=== PATIENT | male | born 1965 | race Caucasian/White ===

== ENCOUNTER → 2018-06-27 | Outpatient (CLI) | payer BC ==
--- NOTE | 2018-06-28 08:13 | US ---
EXAMINATION TYPE: US kidneys/renal and bladder DATE OF EXAM: 06/27/2018 COMPARISON: NONE CLINICAL HISTORY: E11.29Type 2 diabetes mellitus with other diabetic. kidney issues related to DMII EXAM MEASUREMENTS: Right Kidney: 9.0 x 4.6 x 5.1 cm Left Kidney: 11.7 x 6.0 x 6.6 cm morbidly obese patient Right Kidney:Smaller in size, no hydronephrosis or masses seen Left Kidney: No hydronephrosis or masses seen Bladder: wnl IMPRESSION: Asymmetry of the size of the kidneys with no evidence of obvious hydronephrosis or nephrolithiasis.
== END ==
LOC: RADUSWWP 15:35
PROVIDERS: ATTEND Family Medicine
DX: E11.29 Type 2 diabetes mellitus with other diabetic kidney complication (principal); R93.429 Abnormal radiologic findings on diagnostic imaging of unspecified kidney
CPT/HCPCS: 76770

== ENCOUNTER → 2018-11-18 | Outpatient (CLI) | payer BC ==
--- NOTE | 2018-11-21 01:58 | MR ---
MR scan of the left wrist. History wrist pain. Pain lateral aspect of the wrist. Comparison none. TECHNIQUE: Multiplanar multiecho imaging of the left wrist was performed with no contrast. FINDINGS: The flexor and extensor tendons of the wrist appear intact. Joint spaces are fairly normal. The trian gular cartilage appears intact. The carpal bones are intact and there is no evidence of avascular nec rosis. Intercarpal joint spaces are fairly normal. The collateral ligaments appear intact. There is m inimal subcutaneous edema around the wrist. There is no evidence of a soft tissue mass. There is mild degenerative spurring at the first carpometacarpal joint. IMPRESSION: No fracture. No evidence of ligamentous tear. Minimal spurring at the first carpometacarpal joint.
== END | disposition home or self-care (01) ==
LOC: RADMRIMAIN 11:00
PROVIDERS: ATTEND Orthopaedic Surgery Hand Surgery
DX: M25.532 Pain in left wrist (principal); M19.042 Primary osteoarthritis, left hand; M19.041 Primary osteoarthritis, right hand; M25.531 Pain in right wrist; R53.1 Weakness; E11.9 Type 2 diabetes mellitus without complications; G56.12 Other lesions of median nerve, left upper limb

== ENCOUNTER → 2020-03-04 | Outpatient (CLI) | payer BC | END | disposition home or self-care (01) | LOC: LABWHC1 09:43 | PROVIDERS: ATTEND Surgery | DX: Z11.59 Encounter for screening for other viral diseases (principal) ==

== ENCOUNTER → 2020-03-07 | Day surgery (SDC) | payer BC ==
[2020-03-06 10:42] VITALS: BMI 54.9
[~2020-03-07] MED LIST: GLYCOPYRROLATE 0.2 MG/ML 2 ML VIAL ONE; LACTATED RINGERS 1,000 ML IV ONE; LACTATED RINGERS 1,000 ML IV SCH; LIDOCAINE 1% (10MG/ML) FOR IV START INTRADERMA ONE; LIDOCAINE 1% INJ 10MG/ML (20 ML MDV) ONE; PROPOFOL 10 MG/ML 20 ML VIAL IV ONE
[2020-03-07 10:39] VITALS: RESP 18; TEMP 97.8
[2020-03-07 10:47] LABS: Glucose,Whole Blood 170 mg/dL (75-99)
--- NOTE | 2020-03-07 11:26 | P.GSHP ---
History of Present Illness H&P Date: 03/07/20 Chief Complaint: Screening colonoscopy This a 54-year-old male referred from Dr. Finney. Patient rents today for screening colonoscopy. Patient denies any significant GI complaints. Past Medical History Past Medical History: Cancer, COPD, Diabetes Mellitus, Deep Vein Thrombosis (DVT), Hyperlipidemia, Hypertension, Pulmonary Embolus (PE), Sleep Apnea/CPAP/BIPAP Additional Past Medical History / Comment(s): COLON CANCER STAGE 3 , HISTORY OF FACTOR 5, HAS A GREEN FIELD FILTER, History of Any Multi-Drug Resistant Organisms: None Reported Past Surgical History: Bowel Resection Additional Past Surgical History / Comment(s): INSERTION GREEN FIELD FILTER - CLOTS REMOVED FROM GREEN FIELD Past Anesthesia/Blood Transfusion Reactions: No Reported Reaction Smoking Status: Current every day smoker - Past Family History Mother Family Medical History: No Reported History Medications and Allergies Home Medications Medication Instructions Recorded Confirmed Type Albuterol Inhaler [Ventolin Hfa 2 puff INHALATION TID PRN 03/06/20 03/06/20 History Inhaler] Atorvastatin [Lipitor] 20 mg PO DAILY 03/06/20 03/06/20 History INSULIN LISPRO (humaLOG) [humaLOG] 0 units SQ ACHS 03/06/20 03/06/20 History Insulin Glargine,Hum.rec.anlog 100 units SQ AC-SUPPER 03/06/20 03/06/20 History [Toujeo Solostar] Umeclidinium Brm/Vilanterol Tr 1 puff INHALATION DAILY 03/06/20 03/06/20 History [Anoro Ellipta 62.5-25 Mcg INH] Valsartan/Hydrochlorothiazide 1 each PO DAILY 03/06/20 03/06/20 History [Valsartan-Hctz 320-25 mg Tab] amLODIPine [Norvasc] 10 mg PO DAILY 03/06/20 03/06/20 History metFORMIN HCL 1,000 mg PO BID 03/06/20 03/06/20 History Allergies Allergy/AdvReac Type Severity Reaction Status Date / Time No Known Allergies Allergy Verified 03/06/20 09:56 Surgical - Exam Vital Signs Temp Pulse Resp BP Pulse Ox 97.8 F 88 18 208/110 98 03/07/20 10:38 03/07/20 10:38 03/07/20 10:38 03/07/20 10:38 03/07/20 10:38 - General well developed, well nourished, no distress - Eyes PERRL - ENT normal pinna - Neck no masses - Respiratory normal expansion - Cardiovascular Rhythm: regular - Abdomen Abdomen: soft, non tender Results - Labs Abnormal Lab Results - Last 24 Hours (Table) 03/07/20 Range/Units 10:45 POC Glucose (mg/dL) 170 H (75-99) mg/dL Assessment and Plan Assessment: We'll perform screening colonoscopy.
--- NOTE | 2020-03-07 12:00 | P.OP ---
Date of Procedure: 03/07/20 Preoperative Diagnosis: Screening colonoscopy Postoperative Diagnosis: Descending colon polyp Status post right colectomy Procedure(s) Performed: Colonoscopy Anesthesia: MAC Surgeon: Cornelius Santana Pathology: other (Descending colon polyp) Condition: stable Disposition: PACU Description of Procedure: Patient is morbidly obese with BMI 57. He weighed 189 kg. His abdominal wall was quite stiff and difficult to maneuver. The patient's placed on the endoscopy table lateral position. He received IV sedation. Digital rectal exam was performed which revealed no abnormalities. The flexible colonoscope was then placed patient anus and passed throughout the entire colon. She had a previous right I. The ileocolonic anastomosis visually's. The remaining acing colon transverse colon appeared normal. In the descending colon was small polyp seen was removed with the comminution of the snare and cold forcep. The scope was then brought back the sigmoid colon this appeared normal. Scope brought back the rectum and this was normal. Scope withdrawn for patient.
[2020-03-07 12:40] VITALS: BP 119/81; PULSE 97
== END ==
LOC: ORWHC2ENDO 10:22
PROVIDERS: ATTEND Surgery
DX: Z12.11 Encounter for screening for malignant neoplasm of colon (principal); K63.5 Polyp of colon; Z98.0 Intestinal bypass and anastomosis status; Z90.49 Acquired absence of other specified parts of digestive tract; E66.01 Morbid (severe) obesity due to excess calories; Z68.43 Body mass index [BMI] 50.0-59.9, adult; J44.9 Chronic obstructive pulmonary disease, unspecified; E11.9 Type 2 diabetes mellitus without complications; Z86.718 Personal history of other venous thrombosis and embolism; E78.5 Hyperlipidemia, unspecified; I10 Essential (primary) hypertension; Z86.711 Personal history of pulmonary embolism; G47.33 Obstructive sleep apnea (adult) (pediatric); Z99.89 Dependence on other enabling machines and devices; D68.51 Activated protein C resistance; Z95.828 Presence of other vascular implants and grafts; Z85.038 Personal history of other malignant neoplasm of large intestine; F17.210 Nicotine dependence, cigarettes, uncomplicated; Z79.4 Long term (current) use of insulin; Z79.899 Other long term (current) drug therapy
CPT/HCPCS: 88305; 45385; J2001; J2704; 45380

== ENCOUNTER → 2022-01-12 | Outpatient (CLI) | payer OTHER ==
[~2022-01-12] MED LIST changes: -GLYCOPYRROLATE 0.2 MG/ML 2 ML VIAL ONE; -LACTATED RINGERS 1,000 ML IV ONE; -LACTATED RINGERS 1,000 ML IV SCH; -LIDOCAINE 1% (10MG/ML) FOR IV START INTRADERMA ONE; -LIDOCAINE 1% INJ 10MG/ML (20 ML MDV) ONE; -PROPOFOL 10 MG/ML 20 ML VIAL IV ONE; +REGADENOSON 0.4 MG/5 ML SYRINGE IV PRN
--- NOTE | 2022-01-13 17:26 | NM ---
EXAMINATION TYPE: NM myocardial SPECT single DATE OF EXAM: 01/12/2022 COMPARISON: NONE HISTORY: Abnormal EKG TECHNIQUE: After the intravenous administration of 10.3 mCi Tc 99m Sestamibi - Cardiolite resting SP ECT images acquired 45 minutes post injection. Due to patient's elevated blood pressure time of the examination stress imaging was not performed. FINDINGS: SPECT imaging of the resting left ventricle suggests a large defect extending from the card iac base to the cardiac apex along the inferior wall. Ejection fraction is low at 40%. Normal greater than 50%. There may be global hypokinesia. IMPRESSION: 1. Defect along the inferior wall on resting images. Differential diagnosis can include prior infarct or ischemic change. 2. Low ejection fraction of 50%. Global hypokinesia may be present. 3. Exam is limited to the resting images. Elevated blood pressure prevented completion of the exam.
== END | disposition home or self-care (01) ==
LOC: RADNMMAIN 08:42
PROVIDERS: ATTEND Family Medicine
DX: R03.0 Elevated blood-pressure reading, without diagnosis of hypertension (principal); R94.31 Abnormal electrocardiogram [ECG] [EKG]
CPT/HCPCS: 78451; A9500; J2785

== ENCOUNTER → 2022-01-23 | Outpatient (CLI) | payer OTHER ==
--- NOTE | 2022-01-25 20:28 | CT ---
EXAMINATION TYPE: CT abdomen pelvis w con DATE OF EXAM: 01/23/2022 COMPARISON: None. HISTORY: Abd mass, swelling, pain LUQ CT DLP: 2688 mGycm, Automated Exposure Control for Dose Reduction was Utilized. CONTRAST: CT scan of the abdomen and pelvis is performed with oral and with IV Contrast, patient injected with 100ml mL of Isovue 300. FINDINGS: LUNG BASES: Mild bibasilar linear scarring and/or atelectasis. Coronary artery calcification the RCA distribution. LIVER/GB: Dependent small calcified gallstones in gallbladder. No surrounding inflammatory change. No biliary dilatation. PANCREAS: No significant abnormality is seen. SPLEEN: No significant abnormality is seen. ADRENALS: No significant abnormality is seen. KIDNEYS: Symmetric cortical medullary uptake and excretion without hydronephrosis seen bilaterally. BOWEL: Nonvisualized right colon suspecting partial colectomy changes. Oral contrast does not reach c olonic level. No suspicious small or large bowel dilatation is seen. Redundant sigmoid colon is noted . LAP-BAND device is satisfactory in position. Small air-fluid level in the distal esophagus noted. PROSTATE/SEMINAL VESICLES: No gross abnormality seen. LYMPH NODES: No greater than 1cm abdominal or pelvic lymph nodes are appreciated. OSSEOUS STRUCTURES: Iqqy-fa-zkwdjvwi multilevel spurring in the spine. OTHER: Moderate-sized fat-containing left inguinal hernia. Infrarenal IVC filter. Metallic stents in the common iliac veins bilaterally below this are noted. IMPRESSION: 1. No suspicious mass in the left upper quadrant. No acute findings are evident. No intra-abdominal a scites.
== END | disposition home or self-care (01) ==
LOC: RADCTMAIN 13:33
PROVIDERS: ATTEND Family Medicine
DX: R19.00 Intra-abdominal and pelvic swelling, mass and lump, unspecified site (principal); R10.12 Left upper quadrant pain
CPT/HCPCS: 74177; Q9967

== ENCOUNTER → 2022-03-02 | Outpatient (CLI) | payer OTHER ==
[2022-03-02 17:56] LABS: HCT 48.4 % (39.6-50.0); HGB 15.8 g/dL (13.0-17.0); MCH 29.6 pg (27.0-32.0); MCHC 32.6 g/dL (32.0-37.0); MCV 90.6 fL (80.0-97.0); Mean Platelet Volume 10.4 fL (9.5-12.2); NRBC Per 100 WBC 0 /100 WBCS (0.0-0.0); Platelet Count 216 X 10*3/uL (140-440); RBC 5.34 X 10*6/uL (4.40-5.60); RDW 13.6 % (11.5-14.5); WBC 7.43 X 10*3/uL (4.50-10.00)
[2022-03-02 20:17] LABS: ALT 7 U/L (10-49); AST 12 U/L (14-35); African American GFR (CKD) 115.2 (60.0-200.0); BUN/Creat Ratio 14.32 Ratio (12.00-20.00); Carbon Dioxide 23.3 mmol/L (20.0-27.5); Chloride 100 mmol/L (96-109); Chol/HDL Ratio 4.73 Ratio; Glucose 293 mg/dL (70-110); LDL Cholesterol,Calculated 96.1 mg/dL (0.0-131.0); Non-African American GFR(CKD) 99.4 (60.0-200.0); Potassium 4.2 mmol/L (3.5-5.5); Sodium 135 mmol/L (135-145)
== END | disposition home or self-care (01) ==
LOC: LABWHC1 10:35
PROVIDERS: ATTEND Nurse Practitioner Family
DX: E78.2 Mixed hyperlipidemia (principal)
CPT/HCPCS: 36415; 80048; 80061; 84443; 84450; 84460; 85027

== ENCOUNTER → 2024-08-07 | Outpatient (CLI) | payer OTHER ==
[2024-08-07 18:32] LABS: ALT 15 U/L (10-49); AST 18 U/L (14-35); Albumin 4.5 g/dL (3.8-4.9); Albumin/Globulin Ratio 1.67 Ratio (1.60-3.17); Alkaline Phosphatase 77 U/L (41-126); BUN/Creat Ratio 10.67 Ratio (12.00-20.00); Blood Urea Nitrogen 9.6 mg/dL (9.0-27.0); Calcium 9.1 mg/dL (8.7-10.3); Carbon Dioxide 23.8 mmol/L (21.6-31.8); Chloride 104 mmol/L (96-109); Chol/HDL Ratio 4.57 Ratio; Globulin 2.7 g/dL (1.6-3.3); Glucose 118 mg/dL (70-110); Potassium 4.5 mmol/L (3.5-5.5); Sodium 140 mmol/L (135-145); Total Bilirubin 0.9 mg/dL (0.3-1.2); Total Protein 7.2 g/dL (6.2-8.2)
[2024-08-07 20:12] LABS: Urine Creatinine 68.4 mg/dL (39.0-259.0)
== END | disposition home or self-care (01) ==
LOC: LABWHC1 14:09
PROVIDERS: ATTEND Internal Medicine Endocrinology, Diabetes & Metabolism
DX: E11.65 Type 2 diabetes mellitus with hyperglycemia (principal)
CPT/HCPCS: 36415; 80053; 80061; 82043; 82570; 83036; 84443

== ENCOUNTER → 2024-12-01 | Outpatient (CLI) | payer OTHER ==
[2024-12-01 15:41] LABS: Blood Urea Nitrogen 11.7 mg/dL (9.0-27.0); Chol/HDL Ratio 4.69 Ratio; Glucose 181 mg/dL (70-110); LDL Cholesterol,Calculated 90.1 mg/dL (0.0-131.0)
[2024-12-01 15:42] LABS: ALT 14 U/L (10-49); AST 16 U/L (14-35); Albumin 4.2 g/dL (3.8-4.9); Albumin/Globulin Ratio 1.83 Ratio (1.60-3.17); Alkaline Phosphatase 70 U/L (41-126); Carbon Dioxide 26.5 mmol/L (21.6-31.8); Chloride 102 mmol/L (96-109); Globulin 2.3 g/dL (1.6-3.3); Potassium 4.5 mmol/L (3.5-5.5); Sodium 140 mmol/L (135-145); Total Protein 6.5 g/dL (6.2-8.2)
== END | disposition home or self-care (01) ==
LOC: LABWHC1 09:37
PROVIDERS: ATTEND Internal Medicine Endocrinology, Diabetes & Metabolism
DX: E11.65 Type 2 diabetes mellitus with hyperglycemia (principal)
CPT/HCPCS: 36415; 80053; 80061; 82043; 82570; 83036; 84443

== ENCOUNTER → 2025-01-02 | Outpatient (CLI) | payer OTHER ==
--- NOTE | 2025-01-03 18:00 | CTL ---
EXAMINATION TYPE: CT Low Dose Lung DATE OF EXAM: 01/02/2025 9:10 AM COMPARISON: None. SCREENING VISIT: Initial CT DIAGNOSTIC QUALITY: Limited, but interpretable CLINICAL INDICATION: Male, 59 years old with history of Z44.9 COPD Z12.2 LUNG CA SCR F17.210 Z44.9 NI COTIN, COPD, Lung Cancer Screening, Nicotine Dependence, Lung cancer screening, History of tobacco us e. TECHNIQUE: Low dose computed tomography scan was performed through the chest at 1 mm thick sections a nd reconstructed images in the coronal plane at 1 mm thick sections. Contrast used: mL of , (none if empty) Oral contrast used: (none if empty) CT DLP: 219 mGycm, Automated exposure control for dose reduction was used. CT CTDI: 5.78 mGy, Automated exposure control for dose reduction was used. FINDINGS: LUNG NODULES: None. LUNGS: COPD: Severity: None Fibrosis: Severity: None Lymph nodes: None Other findings: None RIGHT PLEURAL SPACE: Effusion: None Calcification: None Thickening: None Pneumothorax: None LEFT PLEURAL SPACE: Effusion: None Calcification: None Thickening: None Pneumothorax: None HEART: Other: Ascending thoracic aorta at the level the main pulmonary artery measures 4.4 cm. The main pul monary artery at the bifurcation measures 2.7 cm. Heart Size: Normal Coronary calcification: No significant coronary artery calcifications. Pericardial effusion: None OTHER FINDINGS: Upper abdomen: Normal Bony thorax: Normal Supraclavicular region: Normal IMPRESSION: 1. No suspicious changes to suggest primary or metastatic neoplasm. 2. Ascending thoracic aortic aneurysm measuring approximately 4.[address] CHEST RECOMMENDATION: Follow-up low-dose CT chest one year CT LUNG RAD: Lung-Rad 2 Benign Appearance or Behavior [facility], , 01/03/2025 5:57 PM
== END | disposition home or self-care (01) ==
LOC: RADCTMAIN 08:05
PROVIDERS: ATTEND Internal Medicine
DX: Z12.2 Encounter for screening for malignant neoplasm of respiratory organs (principal); F17.210 Nicotine dependence, cigarettes, uncomplicated; J44.9 Chronic obstructive pulmonary disease, unspecified
CPT/HCPCS: 71271; 94060; 94726; 94729

== ENCOUNTER 2025-02-06 10:15 | Inpatient (IN) | payer OTHER ==
[2025-02-06] MEDS: NITROGLYCERIN SL TABS 0.4 MG TAB SUBLINGUAL STA ×2 (10:33→10:41)
[2025-02-06] MEDS: methylPREDNISolone SOD SUCCI 125 MG/2 ML VIAL IV STA (10:33)
--- NOTE | 2025-02-06 10:36 | XR ---
EXAMINATION TYPE: XR chest 1V portable DATE OF EXAM: 02/06/2025 10:26 AM COMPARISON: None CLINICAL INDICATION: Male, 59 years old with history of teri, shortness of breath FINDINGS: Heart mildly enlarged. Diffuse interstitial opacities with Chary B lines. Possible early developing patchy opacity at the lower lungs. No sizable pleural effusion on the frontal view. IMPRESSION: Correlate for CHF with interstitial pulmonary edema. [facility], , 02/06/2025 10:34 AM
[2025-02-06 10:51] LABS: Basophils # (A) 0.12 10*3/uL (0.00-0.10); Basophils % (A) 0.8 %; Eosinophils # (A) 0.29 10*3/uL (0.04-0.35); HCT 44.1 % (39.6-50.0); HGB 15.1 g/dL (13.0-17.0); Lymphocytes # (A) 1.22 10*3/uL (0.90-5.00); Lymphocytes % (A) 8.4 %; MCH 30.6 pg (27.0-32.0); MCHC 34.2 g/dL (32.0-37.0); MCV 89.5 fL (80.0-97.0); Monocytes # (A) 0.82 10*3/uL (0.20-1.00); Monocytes % (A) 5.6 %; Neutrophils # (A) 11.95 10*3/uL (1.80-7.70); Platelet Count 183 10*3/uL (140-440); RBC 4.93 10*6/uL (4.40-5.60); RDW 14.6 % (11.5-14.5); WBC 14.57 10*3/uL (4.50-10.00)
--- NOTE | 2025-02-06 10:58 | ED ---
General Adult HPI - General Chief complaint: Shortness of Breath Stated complaint: SOB Time Seen by Provider: 02/06/25 10:15 Source: patient, RN notes reviewed, old records reviewed Mode of arrival: EMS Limitations: no limitations - History of Present Illness Initial comments: 59-year-old male who presents emergency department for shortness of breath. States that he woke up this morning with sudden onset severe worsening shortness of breath. Cannot catch his breath. EMS arrived and was hypoxic near 80%. Blood pressures for EMS were 220-240 systolic. Placed on CPAP and given breathing treatments. Has a history of COPD, colon cancer, diabetes, hypertension, hyperlipidemia, PE currently not on blood thinners. Uses CPAP at night. Denies any recent cough, congestion, rhinorrhea. Denies any fevers. Denies chest pain. Denies abdominal pain, nausea, vomiting. States that he has had progressive worsening lower extremity swelling, exertional dyspnea that has been ongoing over the last few weeks. Has not thought much of it. He has been dealing with higher blood pressures over this period of time as well and recently had some medication adjustments. Was given a as needed medication as well. Did not take his normal blood pressure meds this morning but took normal ones from last night. Presents for further evaluation at this time. Feels improved on the BiPAP machine which she was placed on upon arrival. - Related Data Home Medications Medication Instructions Recorded Confirmed Albuterol Inhaler [Ventolin Hfa 2 puff INHALATION RT-BID 03/06/20 02/06/25 Inhaler] amLODIPine [Norvasc] 10 mg PO DAILY 03/06/20 02/06/25 Dextromethorphn/Acetaminoph/Cp 1 tab PO DAILY PRN 02/06/25 02/06/25 [Coricidin Hbp Flu Tablet] Fluticasone/Umeclidin/Vilanter 1 puff INHALATION RT-DAILY@1200 02/06/25 02/06/25 [Trelegy Ellipta 200-62.5-25] Insulin Lispro Protamin/Lispro 80 unit SQ BID 02/06/25 02/06/25 [HumaLOG Mix 75-25] Metoprolol Succinate (ER) [Toprol 100 mg PO DAILY 02/06/25 02/06/25 Xl] Semaglutide [Ozempic] 2 mg SQ STOVER 02/06/25 02/06/25 carvediloL [Coreg] 6.25 mg PO BID-W/MEALS 02/06/25 02/06/25 cloNIDine HCL [Catapres] 0.1 mg PO Q6H PRN 02/06/25 02/06/25 lisinopriL 40 mg PO DAILY 02/06/25 02/06/25 metFORMIN HCL [metFORMIN HCL ER 1,000 mg PO HS 02/06/25 02/06/25 Osmotic] Allergies Allergy/AdvReac Type Severity Reaction Status Date / Time No Known Allergies Allergy Verified 02/06/25 11:26 Review of Systems ROS Statement: Those systems with pertinent positive or pertinent negative responses have been documented in the HPI. Review of Systems: CONST: Denies fever EYES: Denies blurry vision ENT: Denies nasal congestion C/V: Denies Chest pain RESP: Endorses shortness of breath GI: Denies abdominal pain : Denies dysuria SKIN: Denies rash. MSK: Denies joint pain. NEURO: Denies headache ROS Other: All systems not noted in ROS Statement are negative. Past Medical History Past Medical History: Cancer, COPD, Diabetes Mellitus, Deep Vein Thrombosis (DVT), Hyperlipidemia, Hypertension, Pulmonary Embolus (PE), Sleep Apnea/CPAP/BIPAP Additional Past Medical History / Comment(s): COLON CANCER STAGE 3 , HISTORY OF FACTOR 5, HAS A GREEN FIELD FILTER, History of Any Multi-Drug Resistant Organisms: None Reported Past Surgical History: Bowel Resection Additional Past Surgical History / Comment(s): INSERTION GREEN FIELD FILTER - CLOTS REMOVED FROM GREEN FIELD Past Anesthesia/Blood Transfusion Reactions: No Reported Reaction Past Psychological History: No Psychological Hx Reported Smoking Status: Former smoker Past Alcohol Use History: Occasional Past Drug Use History: None Reported, Marijuana - Past Family History Mother Family Medical History: No Reported History General Exam - General Exam Comments Initial Comments: General: Appears in no acute distress. HEAD: Normal with no signs of head trauma. EYES: PERRLA, EOMI, conjunctiva normal, no discharge. ENT: Hearing grossly intact, normal oropharynx. RESPIRATORY: Reduced breath sounds bilaterally. Hypoxic on room air. Increased work of breathing. C/V: Mild tachycardia with regular rhythm.. S1 and S2 auscultated, symmetrical lower extremity pitting edema, peripheral pulses 2+ and intact throughout ABD: Abd is soft, nontender, nondistended EXT: No obvious deformity SKIN: No rashes or lesions observed on exposed skin. NEURO: Alert and orient x 4 Limitations: no limitations Course Vital Signs 02/06/25 02/06/25 02/06/25 10:15 10:18 10:23 Temperature 98.5 F Pulse Rate 105 H Respiratory 26 H Rate Blood Pressure 202/119 O2 Sat by Pulse 97 Oximetry Fraction of 40 40 Inspired Oxygen (FIO2) 02/06/25 02/06/25 02/06/25 10:25 10:38 10:43 Temperature Pulse Rate 104 H 104 H Respiratory 26 H 26 H 26 H Rate Blood Pressure 189/105 167/94 O2 Sat by Pulse 96 99 Oximetry Fraction of Inspired Oxygen (FIO2) 02/06/25 02/06/25 02/06/25 11:01 11:38 12:09 Temperature Pulse Rate 105 H 95 92 Respiratory 30 H 18 20 Rate Blood Pressure 199/111 183/111 179/93 O2 Sat by Pulse 97 98 98 Oximetry Fraction of Inspired Oxygen (FIO2) 02/06/25 02/06/25 02/06/25 12:15 12:25 12:34 Temperature Pulse Rate 97 91 96 Respiratory 16 Rate Blood Pressure 178/99 O2 Sat by Pulse 97 Oximetry Fraction of 40 Inspired Oxygen (FIO2) 02/06/25 02/06/25 13:02 13:34 Temperature Pulse Rate 92 99 Respiratory 16 18 Rate Blood Pressure 169/96 184/109 O2 Sat by Pulse 98 98 Oximetry Fraction of Inspired Oxygen (FIO2) Medical Decision Making - Medical Decision Making Was pt. sent in by a medical professional or institution (, PA, ARCHITECTURAL PROJECT CAPTAIN, urgent care, hospital, or detention...) When possible be specific @ -No Did you speak to anyone other than the patient for history (EMS, parent, family, police, friend...)? What history was obtained from this source @ -No Did you review nursing and triage notes (agree or disagree)? Why? @ -I reviewed and agree with nursing and triage notes Were old charts reviewed (outside hosp., previous admission, EMS record, old EKG, old radiological studies, urgent care reports/EKG's, detention records)? Report findings @ -Re viewed CT from December 2024 which revealed the mildly dilated aortic aneurysm of the ascending aorta measuring 4.4 cm Differential Diagnosis (chest pain, altered mental status, abdominal pain women, abdominal pain men, vaginal bleeding, weakness, fever, dyspnea, syncope, headache, dizziness, GI bleed, back pain, seizure, CVA, palpatations, mental health, musculoskeletal)? @ -Differential Dyspnea: Coronary syndrome, arrhythmia, tamponade, asthma, COPD, pulmonary embolism, pneumonia, pneumothorax, pulmonary effusion, anaphylaxis, diabetic ketoacidosis, flailed chest, pulmonary contusion, diaphragmatic rupture, anemia, neuromuscular, this is not meant to be an all-inclusive list. EKG interpreted by me (3pts min.). @ -As above X-rays interpreted by me (1pt min.). @ -Chest x-ray shows pulm vascular congestion CT interpreted by me (1pt min.). @ -CT PE negative for PE. Shows findings consistent with pulmonary vascular congestion. U/S interpreted by me (1pt. min.). @ -None done What testing was considered but not performed or refused? (CT, X-rays, U/S, labs)? Why? @ -None What meds were considered but not given or refused? Why? @ -None Did you discuss the management of the patient with other professionals (professionals i.e. , PA, ARCHITECTURAL PROJECT CAPTAIN, lab, RT, psych nurse, social worker clinical, hospice educator, teacher, immigration officer, case manager specialist)? Give summary @ -Discussed with Dr. Bryant who evaluated the patient at bedside and requested change from nitro drip to Cleviprex drip and accepted the patient to ICU. I spoke with the admitting provider, Dr. Zavala who accepted the admission. Was smoking cessation discussed for >3mins.? @ -No Was critical care preformed (if so, how long)? @ -Yes, 43 minutes Were there social determinants of health that impacted care today? How? (Homelessness, low income, unemployed, alcoholism, drug addiction, transportation, low edu. Level, literacy, decrease access to med. care, longterm, rehab)? @ -No Was there de-escalation of care discussed even if they declined (Discuss DNR or withdrawal of care, Hospice)? DNR status @ -No What co-morbidities impacted this encounter? (DM, HTN, Smoking, COPD, CAD, Cancer, CVA, ARF, Chemo, Hep., AIDS, mental health diagnosis, sleep apnea, morbid obesity)? @ -COPD, hypertension Was patient admitted / discharged? Hospital course, mention meds given and route, prescriptions, significant lab abnormalities, going to OR and other pertinent info. @ -Based on patient's presentation and physical exam. Patient presents for acute hypoxic respiratory failure. Appears to be hypertensive emergency with possible flash pulmonary edema versus with progressively worsening CHF symptoms over the last few weeks. Cannot rule out COPD however this seems less likely at this time. Patient did receive a breathing treatment from EMS and we will provide with Solu-Medrol. Patient given sublingual nitroglycerin tablets while we obtain second IV. Patient does have a history of PE as well as cancer and we will obtain CT PE as he did have a recent CT evaluating for any evidence of lung findings or aortic aneurysm and did show a very small aortic aneurysm. Patient was in agreement this plan. Work of breathing is improved on BiPAP. Patient's blood pressure did improve with nitroglycerin tablets. EKG showed no signs of acute ischemia. Laboratory studies are remarkable for leukocytosis of 14 which is likely reactive, elevated D-dimer of 1.19 however we already obtain CT PE which showed no evidence of pulmonary embolism. Troponin returned negative. BNP is within normal limits. Mild hyperglycemia. Chest x-ray showed the pulmonary vas congestion as well. Patient is doing improved at this time however blood pressure did creep back up from systolics of 116 and 190. Nitro drip ordered. Patient given aspirin. Started on IV Lasix. Will continue to treat the patient COPD with IV steroids as well as breathing treatments. Work of breathing is improved and he will remain on BiPAP at this time. He was in agreement this plan. He was updated. Echo ordered. Cardiology consulted. Home blood pressure meds ordered. I spoke with the ICU attending, Dr. Bryant and who accept the patient to the ICU. He did evaluate the patient at bedside and recommended switching the nitro drip for Cleviprex drip which was completed. Patient is awaiting for a bed in the ICU. I spoke with the admitting provider, Dr. Zavala of [facility] who accepted the admission. Undiagnosed new problem with uncertain prognosis? @ -No Drug Therapy requiring intensive monitoring for toxicity (Heparin, Nitro, Insulin, Cardizem)? @ -No Were any procedures done? @ -No Diagnosis/symptom? @ -Acute hypoxic respiratory failure likely secondary to hypertensive emergency with CHF, BiPAP dependent, COPD Acute, or Chronic, or Acute on Chronic? @ -Acute Uncomplicated (without systemic symptoms) or Complicated (systemic symptoms)? @ -Complicated Side effects of treatment? @ -No Exacerbation, Progression, or Severe Exacerbation? @ -No Poses a threat to life or bodily function? How? (Chest pain, [place], OR, pneumonia, PE, COPD, DKA, ARF, appy, cholecystitis, CVA, Diverticulitis, Homicidal, Suicidal, threat to staff... and all critical care pts) @ -Yes - Lab Data Result diagrams: 02/06/25 10:32 02/06/25 10:32 Lab Results 02/06/25 02/06/25 02/06/25 Range/Units 10:32 10:32 10:32 WBC 14.57 H (4.50-10.00) 10*3/uL RBC 4.93 (4.40-5.60) 10*6/uL Hgb 15.1 (13.0-17.0) g/dL Hct 44.1 (39.6-50.0) % MCV 89.5 (80.0-97.0) fL MCH 30.6 (27.0-32.0) pg MCHC 34.2 (32.0-37.0) g/dL Plt Count 183 (140-440) 10*3/uL MPV 10.0 (9.5-12.2) fL Immature Gran % (Auto) 1.2 % Neutrophils % 82.0 % Lymphocytes % 8.4 % Monocytes % 5.6 % Eosinophils % 2.0 % Basophils % 0.8 % Immature Gran # 0.17 H (0.00-0.04) 10*3/uL Neutrophils # 11.95 H (1.80-7.70) 10*3/uL Lymphocytes # 1.22 (0.90-5.00) 10*3/uL Monocytes # 0.82 (0.20-1.00) 10*3/uL Eosinophils # 0.29 (0.04-0.35) 10*3/uL Basophils # 0.12 H (0.00-0.10) 10*3/uL PT 10.5 (10.0-12.5) sec INR 0.9 (<1.2) APTT 19.6 L (22.0-30.0) sec D-Dimer 1.19 H (<0.60) mg/L FEU Sodium 136 L (137-145) mmol/L Potassium 4.3 (3.5-5.1) mmol/L Chloride 103 (98-107) mmol/L Carbon Dioxide 22 (22-30) mmol/L Anion Gap 11 mmol/L BUN 15 (9-20) mg/dL Creatinine 0.92 (0.66-1.25) mg/dL Est GFR (CKD-EPI)AfAm >90 (>60 ml/min/1.73 sqM) Est GFR (CKD-EPI)NonAf >90 (>60 ml/min/1.73 sqM) Glucose 292 H (74-99) mg/dL Plasma Lactic Acid Mihir (0.7-2.0) mmol/L Calcium 8.4 (8.4-10.2) mg/dL Magnesium 1.6 (1.6-2.3) mg/dL Total Bilirubin 1.7 H (0.2-1.3) mg/dL AST 27 (17-59) U/L ALT 17 (4-49) U/L Alkaline Phosphatase 78 (38-126) U/L Troponin I (0.000-0.034) ng/mL NT-Pro-B Natriuret Pep 435 pg/mL Total Protein 7.4 (6.3-8.2) g/dL Albumin 4.3 (3.5-5.0) g/dL 02/06/25 02/06/25 Range/Units 10:32 10:32 WBC (4.50-10.00) 10*3/uL RBC (4.40-5.60) 10*6/uL Hgb (13.0-17.0) g/dL Hct (39.6-50.0) % MCV (80.0-97.0) fL MCH (27.0-32.0) pg MCHC (32.0-37.0) g/dL Plt Count (140-440) 10*3/uL MPV (9.5-12.2) fL Immature Gran % (Auto) % Neutrophils % % Lymphocytes % % Monocytes % % Eosinophils % % Basophils % % Immature Gran # (0.00-0.04) 10*3/uL Neutrophils # (1.80-7.70) 10*3/uL Lymphocytes # (0.90-5.00) 10*3/uL Monocytes # (0.20-1.00) 10*3/uL Eosinophils # (0.04-0.35) 10*3/uL Basophils # (0.00-0.10) 10*3/uL PT (10.0-12.5) sec INR (<1.2) APTT (22.0-30.0) sec D-Dimer (<0.60) mg/L FEU Sodium (137-145) mmol/L Potassium (3.5-5.1) mmol/L Chloride (98-107) mmol/L Carbon Dioxide (22-30) mmol/L Anion Gap mmol/L BUN (9-20) mg/dL Creatinine (0.66-1.25) mg/dL Est GFR (CKD-EPI)AfAm (>60 ml/min/1.73 sqM) Est GFR (CKD-EPI)NonAf (>60 ml/min/1.73 sqM) Glucose (74-99) mg/dL Plasma Lactic Acid Mihir 1.9 (0.7-2.0) mmol/L Calcium (8.4-10.2) mg/dL Magnesium (1.6-2.3) mg/dL Total Bilirubin (0.2-1.3) mg/dL AST (17-59) U/L ALT (4-49) U/L Alkaline Phosphatase (38-126) U/L Troponin I 0.018 (0.000-0.034) ng/mL NT-Pro-B Natriuret Pep pg/mL Total Protein (6.3-8.2) g/dL Albumin (3.5-5.0) g/dL - EKG Data -: EKG Interpreted by Me EKG Comments: 12-lead Electrocardiogram Interpretation Note EKG was reviewed and interpreted by myself. 12-lead ECG performed at 1028 is interpreted by me as revealing sinus tachycardia at a rate of 102 beats per minute. [place] is normal. VT interval is 184 ms, QRS duration is 89 ms, QTc is 422 ms.. There were no ST or T wave abnormalities to suggest myocardial ischemia or injury. R wave progression across the precordium was satisfactory. By my interpretation this EKG is non-diagnostic for acute ischemia. Critical Care Time Critical Care Time: Yes Total Critical Care Time: 43 Disposition Clinical Impression: Congestive heart failure, Acute hypoxic respiratory failure, BiPAP (biphasic positive airway pressure) dependence, Hypertensive emergency, COPD (chronic obstructive pulmonary disease) Disposition: ADMITTED IP TO THIS HOSP Condition: Serious Time of Disposition: 12:18
--- NOTE | 2025-02-06 11:09 | CT ---
EXAMINATION TYPE: CT chest angio for PE DATE OF EXAM: 02/06/2025 11:02 AM COMPARISON: Radiograph same day and low to CT chest 01/12/2025 CLINICAL INDICATION: Male, 59 years old with history of dyspnea, eval for PE; SOB, history of PE and [place] filter, history of colon CA, shortness of breath. TECHNIQUE/CONTRAST: CTA scan of the thorax is performed with IV Contrast, patient injected with 100 mL of Isovue 370, MIP images are created and reviewed these are created on a separate workstation. CT DLP: 1330.8 mGycm, Automated exposure control for dose reduction was used. FINDINGS: The heart is upper limits of normal in size with trace pericardial fluid. No flattening of the interv entricular septum or reflux of contrast into the hepatic veins. Aorta normal caliber with conventional arch vessel branching anatomy. A few borderline to mildly enlarged mediastinal lymph nodes measuring up to 1.4 cm images in the AP w indow and right paratracheal region similar to slightly increased from prior, likely reactive. Subcar inal node 1.8 cm versus 1.2 cm, previously. Right hilar nodes up to 1.5. There is satisfactory opacification of the pulmonary arterial system but with heterogeneity of the ar terial system in the lower lungs due to breathing motion. Allowing for this limitation, no definite p ulmonary embolus is seen. There are small bilateral pleural effusions present with diffuse septal lines and some mild patchy gr oundglass. Mild circumferential wall thickening distal esophagus. Patient with lap band device in place. Small g allstones noted measuring up to 1 cm. Bones: DISH throughout the mid and lower thoracic spine. IMPRESSION: 1. Breathing motion limiting assessment for pulmonary embolus in the lower lungs. No definite pulmona ry embolus allowing for this limitation. 2. Small bilateral pleural effusions along with diffuse septal lines and scattered patchy groundglass . Correlate for fluid overload/cardiac decompensation with interstitial pulmonary edema. 3. Scattered borderline to mildly enlarged mediastinal and hilar lymph nodes are likely reactive. Con diet aide follow-up in 6 months to ensure stability/resolution. 4. Mild circumferential wall thickening distal esophagus with a lap band in place. Findings may refle ct a mild esophagitis. Direct visualization if clinically indicated. 5. Cholelithiasis. [facility], , 02/06/2025 11:06 AM
[2025-02-06 11:18] LABS: ALT 17 U/L (4-49); AST 27 U/L (17-59); African American GFR (CKD) >90 (>60 ml/min/1.73 sqM); Albumin 4.3 g/dL (3.5-5.0); Alkaline Phosphatase 78 U/L (38-126); Anion Gap 11 mmol/L; Blood Urea Nitrogen 15 mg/dL (9-20); Calcium 8.4 mg/dL (8.4-10.2); Carbon Dioxide 22 mmol/L (22-30); Chloride 103 mmol/L (98-107); Glucose 292 mg/dL (74-99); Magnesium 1.6 mg/dL (1.6-2.3); Non-African American GFR(CKD) >90 (>60 ml/min/1.73 sqM); Potassium 4.3 mmol/L (3.5-5.1); Sodium 136 mmol/L (137-145); Total Bilirubin 1.7 mg/dL (0.2-1.3); Total Protein 7.4 g/dL (6.3-8.2)
[2025-02-06 11:20] LABS: INR 0.9 (<1.2); Prothrombin Time 10.5 sec (10.0-12.5)
[2025-02-06 11:26] LABS: NT-Pro-B-Type Natriuretic Pept 435 pg/mL
[2025-02-06 11:42] LABS: Partial Thromboplastin Time 19.6 sec (22.0-30.0)
[2025-02-06] MEDS: NITROGLYCERIN-D5W PMX 50 MG in DEXTROSE/WATER 1 250ML.BAG IV ONE (11:45)
[2025-02-06] MEDS: ASPIRIN 81 MG PO STA (11:48)
[2025-02-06] MEDS: FUROSEMIDE 10 MG/ML 4 ML VIAL IV STA (11:49)
[2025-02-06] MEDS ORDERED: IPRATROPIUM-ALBUTEROL 3 ML NEB INHALATION PRN (11:57)
[2025-02-06] MEDS: IPRATROPIUM-ALBUTEROL 3 ML NEB INHALATION SCH (12:15)
[2025-02-06] MEDS ORDERED: NALOXONE 0.4 MG/ML 1 ML VIAL IV PRN (12:18)
[2025-02-06] MEDS: CLEVIDIPINE BUTYRATE 25 MG in EMPTY BAG 1 BAG IV SCH (13:25)
[2025-02-06] MEDS: carvediloL 6.25 MG TAB PO SCH (13:29)
--- NOTE | 2025-02-06 13:32 | P.CNPUL ---
History of Present Illness Consult date: 02/06/25 Reason for consult: dyspnea, COPD History of present illness: Morbidly obese 59-year-old male patient who presented to the emergency department with increased shortness of breath. The patient was also found to be in hypertensive emergency. Immediately, the patient was placed on a BiPAP at a pressure of 12/6 with an FiO2 of 45%. The patient was given a chest x-ray that showed CHF with interstitial edema. He also had a CT of the chest that showed no evidence of any pulmonary embolism. There was breathing motion artifact. Small bilateral pleural effusions and distal septal lines and scattered patchy groundglass pulmonary filtrates consistent with interstitial pulmonary edema. There is also scattered borderline to mildly enlarged mediastinal lymph nodes and hilar lymph nodes likely reactive. The patient was also started on clevid ipine drip at 2 mg an hour for blood pressure control. Blood pressure was measured to be as high as 202/119. Currently is at 169/96 mmHg. No reported chest pain. No pleurisy. No hemoptysis. 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 He has previous history of colon cancer stage III, resected many years back and the patient was given systemic chemotherapy. White second 14.5, hemoglobin 15.1 and platelet count of 183. Electrolytes are normal within normal limits. BUN is 50 with a creatinine of 0.9. proBNP level is 435. Troponin is at 0.018. Review of Systems Constitutional: Reports daytime sleepiness, Reports fatigue, Reports weight gain Eyes: denies as per HPI, denies blurred vision, denies bulging eye, denies decreased vision, denies diplopia, denies discharge, denies dry eye, denies irr itation, denies itching, denies pain, denies photophobia, denies loss of peripheral vision, denies loss of vision, denies tunnel vision/blind spots Ears: deny: decreased hearing, ear discharge, earache, tinnitus Ears, nose, mouth and throat: Reports as per HPI Breasts: absent: as per HPI, gynecomastia Cardiovascular: Reports decreased exercise tolerance, Reports dyspnea on exertion Respiratory: Reports dyspnea, Reports sleep apnea Gastrointestinal: Reports as per HPI Genitourinary: Reports as per HPI Musculoskeletal: Reports as per HPI Musculoskeletal: bilateral: ankle swelling, absent: ankle pain, ankle stiffness, as per HPI, elbow pain, elbow stiffness, elbow swelling, foot pain, foot stiffness, foot swelling, hand pain, hand stiffness, hand swelling, hip pain, h ip stiffness, hip swelling, knee pain, knee stiffness, knee swelling, shoulder pain, shoulder stiffness, shoulder swelling, wrist pain, wrist stiffness, wrist swelling Integumentary: Reports as per HPI Neurological: Reports as per HPI Psychiatric: Reports as per HPI Endocrine: Reports as per HPI, Reports fatigue Hematologic/Lymphatic: Reports as per HPI Past Medical History Past Medical History: Cancer, COPD, Diabetes Mellitus, Deep Vein Thrombosis (DVT), Hyperlipidemia, Hypertension, Pulmonary Embolus (PE), Sleep Apnea/CPAP/BIPAP Additional Past Medical History / Comment(s): COLON CANCER STAGE 3 post r esection followed by chemotherapy, 2003. HISTORY OF FACTOR 5 Leiden and previous recurrent DVT and pelvic thrombus HAS A GREEN FIELD FILTER. Obesity History of Any Multi-Drug Resistant Organisms: None Reported Past Surgical History: Bowel Resection Additional Past Surgical History / Comment(s): INSERTION GREEN FIELD FILTER - CLOTS REMOVED FROM GREEN FIELD Past Anesthesia/Blood Transfusion Reactions: No Reported Reaction Past Psychological History: No Psychological Hx Reported Smoking Status: Former smoker Past Alcohol Use History: Occasional Past Drug Use History: None Reported, Marijuana - Past Family History Mother Family Medical History: No Reported History Medications and Allergies Home Medications Medication Instructions Recorded Confirmed Type Albuterol Inhaler [Ventolin Hfa 2 puff INHALATION RT-BID 03/06/20 02/06/25 History Inhaler] amLODIPine [Norvasc] 10 mg PO DAILY 03/06/20 02/06/25 History Dextromethorphn/Acetaminoph/Cp 1 tab PO DAILY PRN 02/06/25 02/06/25 History [Coricidin Hbp Flu Tablet] Fluticasone/Umeclidin/Vilanter 1 puff INHALATION RT-DAILY@1200 02/06/25 02/06/25 History [Trelegy Ellipta 200-62.5-25] Insulin Lispro Protamin/Lispro 80 unit SQ BID 02/06/25 02/06/25 History [HumaLOG Mix 75-25] Metoprolol Succinate (ER) [Toprol 100 mg PO DAILY 02/06/25 02/06/25 History Xl] Semaglutide [Ozempic] 2 mg SQ STOVER 02/06/25 02/06/25 History carvediloL [Coreg] 6.25 mg PO BID-W/MEALS 02/06/25 02/06/25 History cloNIDine HCL [Catapres] 0.1 mg PO Q6H PRN 02/06/25 02/06/25 History lisinopriL 40 mg PO DAILY 02/06/25 02/06/25 History metFORMIN HCL [metFORMIN HCL ER 1,000 mg PO HS 02/06/25 02/06/25 History Osmotic] Allergies Allergy/AdvReac Type Severity Reaction Status Date / Time No Known Allergies Allergy Verified 02/06/25 11:26 Physical Exam Vitals: Vital Signs Temp Pulse Resp BP Pulse Ox FiO2 02/06/25 12:25 91 02/06/25 12:15 97 40 02/06/25 12:09 92 20 179/93 98 02/06/25 11:38 95 18 183/111 98 02/06/25 11:01 105 H 30 H 199/111 97 02/06/25 10:43 104 H 26 H 167/94 99 02/06/25 10:38 26 H 02/06/25 10:25 104 H 26 H 189/105 96 02/06/25 10:23 40 02/06/25 10:18 98.5 F 105 H 26 H 202/119 97 02/06/25 10:15 40 Intake and Output 02/05/25 02/06/25 02/06/25 22:59 06:59 14:59 Intake Total 0.625 Balance 0.625 Intake: Intake, IV Titration 0.625 Amount Nitroglycerin-D5w Pmx 50 0.625 mg In Dextrose/Water 1 250ml.bag @ 5 MCG/MIN 1.5 mls/hr IV .Q24H [facility] Rx#: [id number] Other: Weight 190.509 kg The patient appeared well nourished and normally developed. Vital signs as documented. The patient is morbidly obese with a BMI of 57. The patient is currently on BiPAP with mild degree of respiratory distress, tolerating the B iPAP reasonably well at a pressure of 12/6 with an FiO2 of 45%. Not using accessory muscles of breathing. Head exam is unremarkable. No scleral icterus or corneal arcus noted. Neck is without jugular venous distension, thyromegaly, or carotid bruits. Carotid upstrokes are brisk bilaterally. Lungs are clear to auscultation and percussion. Breath sounds are diminished bilaterally Cardiac exam reveals the PMI to be normally sized and situated. Rhythm is regular. First and second heart sounds normal. No murmurs, rubs or gallops. Abdominal exam reveals normal bowel sounds, no masses, no organomegaly and no aortic enlargement. Extremities are mildly edematous and the patient has chronic venous stasis in the lower extremities bilaterally. Examination of the skin revealed no evidence of significant rashes, suspicious appearing nevi or other concerning lesions. Neurologically, the patient is awake and alert and the patient does not have any focal neurological deficit. Cranial nerves are essentially intact. Results - Laboratory Findings CBC and BMP: 02/06/25 10:32 02/06/25 10:32 PT/INR, D-dimer PT 10.5 sec (10.0-12.5) 02/06/25 10:32 INR 0.9 (<1.2) 02/06/25 10:32 D-Dimer 1.19 mg/L FEU (<0.60) H 02/06/25 10:32 Abnormal lab findings: Abnormal Labs 02/06/25 02/06/25 02/06/25 10:32 10:32 10:32 WBC 14.57 H Immature Gran # 0.17 H Neutrophils # 11.95 H Basophils # 0.12 H APTT 19.6 L D-Dimer 1.19 H Sodium 136 L Glucose 292 H Total Bilirubin 1.7 H - Diagnostic Findings Chest x-ray: image reviewed CT scan - chest: image reviewed Assessment and Plan Plan: Acute hypoxic respiratory failure due to pulmonary edema induced by hypertensive emergency. Patient is currently on BiPAP pressure of 12/5 with an FiO2 of 45%. Chest x-ray was consistent with incisional edema and CT of the chest showed no evidence of any pulm embolism or consolidation and the patient has increased interstitial marking consistent with CHF. Acute hypertensive emergency, currently on Cleviprex drip for blood pressure control Acute dyspnea secondary to above COPD maintained on Trelegy Ellipta on outpatient basis. 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 No anticoagulants History of colorectal cancer stage III, postsurgical resection followed by systemic chemotherapy back in 2003 Diabetes mellitus Hypertension Plan Admit the patient to the intensive care unit Continue BiPAP therapy as the patient is tolerating the BiPAP reasonably well Start the patient on Cleviprex drip for blood pressure control IV Lasix 40 mg every 8 hours Restart Coreg and amlodipine for blood pressure control Monitor cardiac enzymes Obtain echocardiogram Will gradually wean the patient off the BiPAP as the patient respite status improves. Continue DuoNeb updrafts Continue Symbicort Heparin subcu for DVT prophylaxis Will continue to follow. The patient moved to the intensive care. Time with Patient: Greater than 30
[2025-02-06] MEDS: amLODIPine 10 MG TAB PO SCH ×2 (13:40→21:34)
[2025-02-06] MEDS: lisinopriL 20 MG TAB PO SCH ×2 (13:40→21:34)
[2025-02-06] MEDS: METOPROLOL SUCCINATE (ER) 100 MG TAB.ER.24H PO SCH ×2 (13:40→21:49)
[2025-02-06] MEDS ORDERED: DEXTROSE 50% SYRINGE 50 ML IVP PRN ×2 (13:59)
--- NOTE | 2025-02-06 14:16 | P.HPIM ---
History of Present Illness H&P Date: 02/06/25 59 year old M with PMH of COPD, 40-60 pack year history, history of PE with factor V leiden mutation, sleep apnea on BiPAP, hypertension, DM on insulin, history of colon CA status post resection following Dr. Jaeger and Dr. Knowles presents to the ED for shortness of breath. Symptoms ongoing for the past 2 days. Sudden onset. Reports a wet cough and congestion. Quit smoking 10 days ago. Supposed to see Dr. Doty in February. Also reports chronic lower extremity swelling. Denies any headache, N/V, fever or chills, chest pain, palpitations, lightheadedness, changes in urination or bowel habits. In the ED she underwent extensive evaluation. BP 202/119, HR 105, RR 26, T 98.5F, 97% on BiPAP FiO2 40%. He was 80s on non rebreather on admission. Labs significant for WBC 14.57, APTT 19.6, D-Dimer 1.19, Na 136, glu 292, Lactic acid 1.9, Mag 1.6, T. Bili 1.7, Trop 0.018, BNP 435. EKG sinus tachycardia with no ST T wave changes. CTA chest no PE, small bilateral pleural effusions with interstitial pulmonary edema, enlarged mediastinal lymph nodes, distal esophagus thickening, cholelithiasis. Patient was given updrafts, Nitro drip later switched to Clevidipine drip, Lasix IV, ASA and admitted to ICU. General: non toxic, no distress, appears at stated age, morbidly obese on BiPAP Derm: warm, dry Head: atraumatic, normocephalic, symmetric Eyes: EOMI, no lid lag, anicteric sclera Mouth: no lip lesion, mucus membranes moist Cardiovascular: S1 S2 tachy. No murmurs. Lungs: Decreased BS BL, no accessory muscle use Ext: no gross muscle atrophy, 2+ LE edema, no contractures Neuro: no focal neuro deficits Psych: Alert and oriented. Based on my assessment of this patient, this patient meets a high complexity level of care. Acute hypoxic respiratory failure secondary to acute COPD exacerbation and pulmonary edema: DuoNeb QID and Q2H PRN. Solumedrol 40 mg IV TID. Symbicort 2 INH BID. Telemetry monitoring. Wean BiPAP as tolerated. Pulmonary on board. Hypertensive emergency with flash pulmonary edema: Clevidipine drip at 8 mg/hr and titrate. Coreg 6.25 mg PO BID. Also on Metoprolol 100 mg PO QD? Amlodipine 10 mg PO QHS. Lisinopril 40 mg PO HS. Obtain Echo. Cardiology on board. SIRS likely related to above: No signs of active infection. Monitor fever profile. Diabetes mellitus with hyperglycemia: Hold Metformin, Ozempic. Start lower dose of Lantus 25 units BID. ISS and Accuchecks ACHS along with hypoglycemic precautions. Obtain A1c. Elevated D-Dimer: PE ruled out. Hyperbilirubinemia: Cholelithiasis on CTA chest. Trend. Esophagitis: Protonix 40 mg IV QD. History of PE with factor V leiden mutation: Outpatient follow up with Dr. Jaeger. Sleep apnea: BiPAP QHS or when short of breath. History of colon CA status post resection: Outpatient follow up with Dr. Jaeger and Dr. Knowles CODE STATUS: FULL CODE DVT Prophylaxis: Lovenox. GI Prophylaxis: Protonix IV Designated medical POA if patient is not able to make medical decisions for themselves: Brother and Mother. I have reviewed the following jd edwards consultant notes: ED note. I have reviewed the results of the following tests: As above. I have ordered the following tests: As above. I have discussed the care of this patient with the following independent historian: Multiple family members. I have independently interpreted the following test below: EKG. I have discussed the management of this patient with the following physician: Past Medical History Past Medical History: Cancer, COPD, Diabetes Mellitus, Deep Vein Thrombosis (DVT), Hyperlipidemia, Hypertension, Pulmonary Embolus (PE), Sleep A pnea/CPAP/BIPAP Additional Past Medical History / Comment(s): COLON CANCER STAGE 3 , HISTORY OF FACTOR 5, HAS A GREEN FIELD FILTER, History of Any Multi-Drug Resistant Organisms: None Reported Past Surgical History: Bowel Resection Additional Past Surgical History / Comment(s): INSERTION GREEN FIELD FILTER - CLOTS REMOVED FROM GREEN FIELD Past Anesthesia/Blood Transfusion Reactions: No Reported Reaction Past Psychological History: No Psychological Hx Reported Smoking Status: Former smoker Past Alcohol Use History: Occasional Past Drug Use History: None Reported, Marijuana - Past Family History Mother Family Medical History: No Reported History Medications and Allergies Home Medications Medication Instructions Recorded Confirmed Type Albuterol Inhaler [Ventolin Hfa 2 puff INHALATION RT-BID 03/06/20 02/06/25 History Inhaler] amLODIPine [Norvasc] 10 mg PO DAILY 03/06/20 02/06/25 History Dextromethorphn/Acetaminoph/Cp 1 tab PO DAILY PRN 02/06/25 02/06/25 History [Coricidin Hbp Flu Tablet] Fluticasone/Umeclidin/Vilanter 1 puff INHALATION RT-DAILY@1200 02/06/25 02/06/25 History [Trelegy Ellipta 200-62.5-25] Insulin Lispro Protamin/Lispro 80 unit SQ BID 02/06/25 02/06/25 History [HumaLOG Mix 75-25] Metoprolol Succinate (ER) [Toprol 100 mg PO DAILY 02/06/25 02/06/25 History Xl] Semaglutide [Ozempic] 2 mg SQ STOVER 02/06/25 02/06/25 History carvediloL [Coreg] 6.25 mg PO BID-W/MEALS 02/06/25 02/06/25 History cloNIDine HCL [Catapres] 0.1 mg PO Q6H PRN 02/06/25 02/06/25 History lisinopriL 40 mg PO DAILY 02/06/25 02/06/25 History metFORMIN HCL [metFORMIN HCL ER 1,000 mg PO HS 02/06/25 02/06/25 History Osmotic] Allergies Allergy/AdvReac Type Severity Reaction Status Date / Time No Known Allergies Allergy Verified 02/06/25 11:26 Physical Exam Vitals: Vital Signs Temp Pulse Resp BP Pulse Ox FiO2 02/06/25 14:00 100 18 163/92 97 02/06/25 13:45 98 16 170/96 98 02/06/25 13:34 99 18 184/109 98 02/06/25 13:02 92 16 169/96 98 02/06/25 12:34 96 16 178/99 97 02/06/25 12:25 91 02/06/25 12:15 97 40 02/06/25 12:09 92 20 179/93 98 02/06/25 11:38 95 18 183/111 98 02/06/25 11:01 105 H 30 H 199/111 97 02/06/25 10:43 104 H 26 H 167/94 99 02/06/25 10:38 26 H 02/06/25 10:25 104 H 26 H 189/105 96 02/06/25 10:23 40 02/06/25 10:18 98.5 F 105 H 26 H 202/119 97 02/06/25 10:15 40 Intake and Output 02/05/25 02/06/25 02/06/25 22:59 06:59 14:59 Intake Total 8.491 Balance 8.491 Intake: Intake, IV Titration 8.491 Amount Clevidipine Butyrate 25 2.866 mg In Empty Bag 1 bag @ 1 MG/HR 2 mls/hr IV .Q24H [facility] Rx#:[id number] Nitroglycerin-D5w Pmx 50 5.625 mg In Dextrose/Water 1 250ml.bag @ 5 MCG/MIN 1.5 mls/hr IV .Q24H ONE Rx#: [id number] Other: Weight 190.509 kg Results CBC & Chem 7: 02/06/25 10:32 02/06/25 10:32 Labs: Abnormal Lab Results - Last 24 Hours (Table) 02/06/25 02/06/25 02/06/25 Range/Units 10:32 10:32 10:32 WBC 14.57 H (4.50-10.00) 10*3/uL Immature Gran # 0.17 H (0.00-0.04) 10*3/uL Neutrophils # 11.95 H (1.80-7.70) 10*3/uL Basophils # 0.12 H (0.00-0.10) 10*3/uL APTT 19.6 L (22.0-30.0) sec D-Dimer 1.19 H (<0.60) mg/L FEU Sodium 136 L (137-145) mmol/L Glucose 292 H (74-99) mg/dL Total Bilirubin 1.7 H (0.2-1.3) mg/dL
[2025-02-06] MEDS: MAGNESIUM SULFATE-D5W PMX 1 GM in DEXTROSE/WATER 1 100ML.BAG IVPB SCH (14:55)
[2025-02-06 15:49] LABS: Glucose,Whole Blood 292 mg/dL (70-110)
[2025-02-06 16:27] LABS: Glucose,Whole Blood 292 mg/dL (70-110)
[2025-02-06] MEDS: INSULIN LISPRO (HumaLOG) 100 UNIT/ML 10 mL VL SQ SCH (16:29)
[2025-02-06] MEDS: methylPREDNISolone SOD SUCCI 40 MG/ML 1 ML VIAL IV SCH (20:19)
[2025-02-06 20:38] LABS: Glucose,Whole Blood 310 mg/dL (70-110)
[2025-02-06] MEDS ORDERED: methylPREDNISolone SOD SUCCI 40 MG/ML 1 ML VIAL IV SCH (21:00)
[2025-02-06] MEDS ORDERED: INSULIN NPL/INSULIN LISPRO 100 UNIT/ML 10 ML VL (Humalog 75/25) SQ SCH (21:00)
[2025-02-06] MEDS: INSULIN GLARGINE (LANTUS) 100 UNIT/ML SYR SQ SCH (21:33)
[2025-02-06] MEDS: FUROSEMIDE 10 MG/ML 4 ML VIAL IV SCH (21:34)
[2025-02-07 05:28] LABS: HCT 41.8 % (39.6-50.0); HGB 14.3 g/dL (13.0-17.0); MCHC 34.2 g/dL (32.0-37.0); MCV 87.6 fL (80.0-97.0); Mean Platelet Volume 9.4 fL (9.5-12.2); Platelet Count 216 10*3/uL (140-440); RBC 4.77 10*6/uL (4.40-5.60); RDW 14.4 % (11.5-14.5)
[2025-02-07 05:56] LABS: ALT 18 U/L (4-49); AST 21 U/L (17-59); African American GFR (CKD) >90 (>60 ml/min/1.73 sqM); Albumin 4.2 g/dL (3.5-5.0); Alkaline Phosphatase 73 U/L (38-126); Anion Gap 10 mmol/L; Blood Urea Nitrogen 18 mg/dL (9-20); Calcium 8.6 mg/dL (8.4-10.2); Carbon Dioxide 24 mmol/L (22-30); Chloride 102 mmol/L (98-107); Glucose 319 mg/dL (74-99); Non-African American GFR(CKD) 89 (>60 ml/min/1.73 sqM); Sodium 136 mmol/L (137-145); Total Bilirubin 1.7 mg/dL (0.2-1.3); Total Protein 7.2 g/dL (6.3-8.2)
[2025-02-07 06:26] LABS: Glucose,Whole Blood 341 mg/dL (70-110)
--- NOTE | 2025-02-07 07:14 | P.CRDCN ---
History of Present Illness Consult date: 02/07/25 History of present illness: The patient is a very pleasant 59-year-old gentleman with a past medical history significant for morbid obesity and sleep apnea as well as hypertension and dyslipidemia who was admitted to the hospital with hypertension emergency complicated by heart failure. The patient was in his usual state of health till last 24 to 48 hours when he started experiencing shortness of breath with exertion has progressed associated with congestions and weight gain. He presented to the hospital because he was not feeling well. No other cardiovascular symptoms of any pain in the chest or dizziness or lightheadedness or any feeling of heart racing or fluttering or presyncope or syncope. The pressure was elevated and consistent with hypertension crisis/hypertension emergency be subsequently the patient underwent further workup including an EKG showing sinus mechanism with poor R wave progression and first set of troponin came to be unremarkable chest x-ray showed finding consistent with heart failure. The patient was started on IV diuretics and also he was started on clevidipine. He stated that he has been compliant with his medications but obviously he is overweight and I am not quite sure if he is compliant with low- sodium diet and low-carb diet overall. He stated that he has been compliant with using the CPAP machine. The physical examination is remarkable for regular rhythm with distant heart sounds and diminished breathing sounds bilaterally and mild bilateral lower extremities edema Assessment Hypertension emergency complicated by heart failure Heart failure of unknown etiology Morbid obesity Sleep apnea Multiple comorbid conditions Plan DC metoprolol succinate in the light of carvedilol on board The patient has been diuresing well on the current dose of Lasix and the kidney function and electrolytes appear to be within normal limits we will continue the IV Lasix for additional 24 hours Continue monitor the kidney function and electrolytes Consider adding either Aldactone or HCTZ if the pressure remains elevated Continue the current dose of lisinopril and amlodipine and both at maximum doses Consider ruling out secondary hypertension if the pressure remains elevated on 3 blood pressure medications including diuretics Obtain an echocardiogram with Doppler Rule out acute coronary event by obtaining serial cardiac enzymes Follow-up with the patient Past Medical History Past Medical History: Cancer, COPD, Diabetes Mellitus, Deep Vein Thrombosis (DVT), Hyperlipidemia, Hypertension, Pulmonary Embolus (PE), Sleep Apnea/CPAP/BIPAP Additional Past Medical History / Comment(s): COLON CANCER STAGE 3 , HISTORY OF FACTOR 5, HAS A GREEN FIELD FILTER, Saddle PE History of Any Multi-Drug Resistant Organisms: None Reported Past Surgical History: Bariatric Surgery, Bowel Resection, Hernia Repair Additional Past Surgical History / Comment(s): INSERTION GREEN FIELD FILTER - CLOTS REMOVED FROM GREEN FIELD, lap band 1999 Past Anesthesia/Blood Transfusion Reactions: No Reported Reaction Smoking Status: Former smoker - Past Family History Mother Family Medical History: No Reported History Medications and Allergies Home Medications Medication Instructions Recorded Confirmed Type Albuterol Inhaler [Ventolin Hfa 2 puff INHALATION RT-BID 03/06/20 02/06/25 History Inhaler] amLODIPine [Norvasc] 10 mg PO DAILY 03/06/20 02/06/25 History Dextromethorphn/Acetaminoph/Cp 1 tab PO DAILY PRN 02/06/25 02/06/25 History [Coricidin Hbp Flu Tablet] Fluticasone/Umeclidin/Vilanter 1 puff INHALATION RT-DAILY@1200 02/06/25 02/06/25 History [Trelegy Ellipta 200-62.5-25] Insulin Lispro Protamin/Lispro 80 unit SQ BID 02/06/25 02/06/25 History [HumaLOG Mix 75-25] Metoprolol Succinate (ER) [Toprol 100 mg PO DAILY 02/06/25 02/06/25 History Xl] Semaglutide [Ozempic] 2 mg SQ STOVER 02/06/25 02/06/25 History carvediloL [Coreg] 6.25 mg PO BID-W/MEALS 02/06/25 02/06/25 History cloNIDine HCL [Catapres] 0.1 mg PO Q6H PRN 02/06/25 02/06/25 History lisinopriL 40 mg PO DAILY 02/06/25 02/06/25 History metFORMIN HCL [metFORMIN HCL ER 1,000 mg PO HS 02/06/25 02/06/25 History Osmotic] Allergies Allergy/AdvReac Type Severity Reaction Status Date / Time No Known Allergies Allergy Verified 02/06/25 11:26 Physical Exam Vitals: Vital Signs Temp Pulse Resp BP Pulse Ox FiO2 02/07/25 07:00 94 15 141/80 96 02/07/25 06:00 100 18 159/81 98 02/07/25 05:00 93 16 148/77 98 02/07/25 04:28 40 02/07/25 04:00 98.1 F 96 18 149/84 94 L 45 02/07/25 03:00 96 17 143/76 96 02/07/25 02:00 97 14 154/77 95 02/07/25 01:00 98 10 L 146/77 97 02/07/25 00:00 98.1 F 96 12 140/72 97 02/06/25 23:55 40 02/06/25 23:15 98 11 L 148/77 97 02/06/25 23:00 98 14 137/71 97 02/06/25 22:00 100 16 150/78 96 02/06/25 21:00 105 H 14 145/74 97 02/06/25 20:45 105 H 16 151/78 97 02/06/25 20:30 109 H 14 149/75 98 02/06/25 20:15 107 H 14 153/87 98 02/06/25 20:11 109 H 02/06/25 20:00 98.0 F 103 H 16 99 02/06/25 19:53 108 H 02/06/25 19:45 54 H 160/81 97 02/06/25 19:30 18 139/67 96 02/06/25 19:15 18 138/80 97 02/06/25 19:00 18 164/85 97 02/06/25 18:45 18 147/69 98 02/06/25 18:30 102 H 18 137/75 98 02/06/25 18:15 18 118/66 98 02/06/25 18:00 163/103 98 40 02/06/25 17:45 143/67 99 02/06/25 17:30 161/83 99 02/06/25 17:15 104 H 150/77 99 02/06/25 17:00 138/79 98 02/06/25 16:45 101 H 20 148/82 99 02/06/25 16:30 100 20 135/67 98 02/06/25 16:18 99 02/06/25 16:15 100 20 148/77 98 02/06/25 16:06 101 H 99 40 02/06/25 16:00 103 H 20 147/83 98 02/06/25 15:49 97.2 F L 79 20 40 02/06/25 15:45 40 02/06/25 15:33 97.8 F 99 18 136/68 99 02/06/25 14:51 101 H 18 139/76 99 02/06/25 14:28 99 20 162/84 98 02/06/25 14:00 100 18 163/92 97 02/06/25 13:45 98 16 170/96 98 02/06/25 13:34 99 18 184/109 98 02/06/25 13:02 92 16 169/96 98 02/06/25 12:34 96 16 178/99 97 02/06/25 12:25 91 02/06/25 12:15 97 40 02/06/25 12:09 92 20 179/93 98 02/06/25 11:38 95 18 183/111 98 02/06/25 11:01 105 H 30 H 199/111 97 02/06/25 10:43 104 H 26 H 167/94 99 02/06/25 10:38 26 H 02/06/25 10:25 104 H 26 H 189/105 96 02/06/25 10:23 40 02/06/25 10:18 98.5 F 105 H 26 H 202/119 97 02/06/25 10:15 40 Intake and Output 02/06/25 02/07/25 02/07/25 22:59 06:59 14:59 Intake Total 210.934 199.767 Output Total 1125 2195 Balance -914.066 -1995.233 Intake: Intake, IV Titration 210.934 199.767 Amount Clevidipine Butyrate 25 210.934 199.767 mg In Empty Bag 1 bag @ 1 MG/HR 2 mls/hr IV .Q24H [facility] Rx#:[id number] Output: Urine 1125 2195 Other: Voiding Method Indwelling Catheter Indwelling Catheter # Voids 2 Weight 190.509 kg 225.45 kg Results 02/07/25 05:18 02/07/25 05:18 Cardiac Enzymes 02/06/25 02/06/25 02/07/25 Range/Units 10:32 10:32 05:18 AST 27 21 (17-59) U/L Troponin I 0.018 (0.000-0.034) ng/mL Coagulation 02/06/25 Range/Units 10:32 PT 10.5 (10.0-12.5) sec APTT 19.6 L (22.0-30.0) sec CBC 02/06/25 02/07/25 Range/Units 10:32 05:18 WBC 14.57 H 14.00 H (4.50-10.00) 10*3/uL RBC 4.93 4.77 (4.40-5.60) 10*6/uL Hgb 15.1 14.3 (13.0-17.0) g/dL Hct 44.1 41.8 (39.6-50.0) % Plt Count 183 216 (140-440) 10*3/uL Comprehensive Metabolic Panel 02/06/25 02/07/25 Range/Units 10:32 05:18 Sodium 136 L 136 L (137-145) mmol/L Potassium 4.3 4.0 (3.5-5.1) mmol/L Chloride 103 102 (98-107) mmol/L Carbon Dioxide 22 24 (22-30) mmol/L BUN 15 18 (9-20) mg/dL Creatinine 0.92 0.95 (0.66-1.25) mg/dL Glucose 292 H 319 H (74-99) mg/dL Calcium 8.4 8.6 (8.4-10.2) mg/dL AST 27 21 (17-59) U/L ALT 17 18 (4-49) U/L Alkaline Phosphatase 78 73 (38-126) U/L Total Protein 7.4 7.2 (6.3-8.2) g/dL Albumin 4.3 4.2 (3.5-5.0) g/dL Current Medications Generic Name Dose Route Start Last Admin Trade Name Freq PRN Reason Stop Dose Admin Albuterol/Ipratropium 3 ml 02/06/25 12:00 02/06/25 19:53 Ipratropium-Albuterol 3 Ml Neb INHALATION 3 ml RT-QID KALA Administration Albuterol/Ipratropium 3 ml 02/06/25 11:57 Ipratropium-Albuterol 3 Ml Neb INHALATION RT-Q2H PRN Shortness Of Breath Or Wheezing Amlodipine Besylate 10 mg 02/06/25 21:00 02/06/25 21:34 Amlodipine 10 Mg Tab PO 10 mg HS KALA Administration Budesonide/Formoterol Fumarate 2 puff 02/07/25 12:00 Symbicort 160-4.5 Mcg Inhaler INHALATION RT-BID KALA Carvedilol 6.25 mg 02/06/25 12:45 02/07/25 06:47 Carvedilol 6.25 Mg Tab PO 6.25 mg BID-W/MEALS KALA Administration Dextrose/Water 25 ml 02/06/25 13:59 Dextrose 50% Syringe 50 Ml IVP PER PROTOCOL PRN Hypoglycemia Protocol Dextrose/Water 50 ml 02/06/25 13:59 Dextrose 50% Syringe 50 Ml IVP PER PROTOCOL PRN Hypoglycemia Protocol Enoxaparin Sodium 40 mg 02/07/25 09:00 Enoxaparin 40 Mg/0.4 Ml Syringe SQ DAILY KALA Furosemide 40 mg 02/06/25 20:00 02/07/25 04:13 Furosemide 10 Mg/Ml 4 Ml Vial IV 40 mg Q8H KALA Administration Clevidipine 25 mg/ IV Solution 50 mls @ 2 mls/hr 02/06/25 12:45 02/07/25 06:50 IV 8 mg/hr .Q24H [facility] 16 mls/hr Titration Protocol 1 MG/HR Insulin Glargine 25 unit 02/06/25 21:00 02/07/25 06:48 Insulin Glargine (Lantus) 100 Unit/Ml Syr SQ 25 unit BID@0700,2100 KALA Administration Insulin Human Lispro 0 unit 02/06/25 17:30 02/07/25 06:47 Insulin Lispro (Humalog) 100 Unit/Ml 10 Ml Vl SQ 16 unit ACHS KALA Administration Protocol Lisinopril 40 mg 02/06/25 21:00 02/06/25 21:34 Lisinopril 20 Mg Tab PO 40 mg HS KALA Administration Methylprednisolone Sodium Succinate 40 mg 02/06/25 18:00 02/07/25 00:08 Methylprednisolone Sod Succi 40 Mg/Ml 1 Ml Vial IV 40 mg Q8HR KALA Administration Metoprolol Succinate 100 mg 02/06/25 21:00 02/06/25 21:49 Metoprolol Succinate (Er) 100 Mg Tab.Er.24h PO 100 mg HS KALA Administration Naloxone HCl 0.2 mg 02/06/25 12:18 Naloxone 0.4 Mg/Ml 1 Ml Vial IV Q2M PRN Opioid Reversal Pantoprazole Sodium 40 mg 02/07/25 09:00 Pantoprazole 40 Mg/10 Ml Vial IVP DAILY KALA Intake and Output 0502/07/25 02/07/25 22:59 06:59 14:59 Intake Total 210.934 199.767 Output Total 1125 2195 Balance -914.066 -1995.233 Intake: Intake, IV Titration 210.934 199.767 Amount Clevidipine Butyrate 25 210.934 199.767 mg In Empty Bag 1 bag @ 1 MG/HR 2 mls/hr IV .Q24H [facility] Rx#:[id number] Output: Urine 1125 2195 Other: Voiding Method Indwelling Catheter Indwelling Catheter # Voids 2 Weight 190.509 kg 225.45 kg 02/07/25 05:18 02/07/25 05:18
[2025-02-07] MEDS: SYMBICORT 160-4.5 MCG INHALER INHALATION SCH (07:45)
[2025-02-07] MEDS: ENOXAPARIN 40 MG/0.4 ML SYRINGE SQ SCH (07:51)
[2025-02-07] MEDS: PANTOPRAZOLE 40 MG/10 ML VIAL IVP SCH (07:51)
[2025-02-07] MEDS ORDERED: cloNIDine HCL 0.1 MG TAB PO PRN (07:59)
--- NOTE | 2025-02-07 08:07 | CA ---
Transthoracic Echo Report Name: Teofilo Franklin Age: 59 Gender: M : 1965 Exam Date: 02/06/2025 13:55 Exam Location: [facility] Ht (in): 72 Wt (lb): 420 Ordering Physician: Teofilo Barahona MD Attending/Referring Phys: Data Entry Supervisor Jenelle Weaver RDCS Procedure CPT: Indications: chf Cardiac Hx: Technical Quality: Very technically difficult study Contrast 1: Definity Total Dose (mL): 2 Contrast 2: Total Dose (mL): MEASUREMENTS (Male / Female) Normal Values 2D ECHO LV Diastolic Diameter PLAX 4.8 cm 4.2 - 5.9 / 3.9 - 5.3 cm LV Systolic Diameter PLAX 3.0 cm IVS Diastolic Thickness 1.3 cm 0.6 - 1.0 / 0.6 - 0.9 cm LVPW Diastolic Thickness 1.3 cm 0.6 - 1.0 / 0.6 - 0.9 cm LV Relative Wall Thickness 0.5 RV Internal Dim ED PLAX 3.8 cm LA Systolic Diameter LX 4.2 cm 3.0 - 4.0 / 2.7 - 3.8 cm LV Diastolic Volume MOD BP 137.6 cm??? 67 - 155 / 56 - 104 cm??? LV Systolic Volume MOD BP 47.4 cm??? 22 - 58 / 19 - 49 cm??? LV Ejection Fraction MOD BP 65.6 % >= 55 % LV Cardiac Index MOD BP 2803.6 cm???/min???m??? LV Diastolic Volume MOD 4C 147.5 cm??? LV Systolic Volume MOD 4C 41.5 cm??? LV Ejection Fraction MOD 4C 71.9 % LV Cardiac Index MOD 4C 3293.1 cm???/min???m??? LV Diastolic Length 4C 9.3 cm LV Systolic Length 4C 8.0 cm LV Diastolic Volume MOD 2C 128.4 cm??? LV Systolic Volume MOD 2C 54.7 cm??? LV Ejection Fraction MOD 2C 57.4 % LV Cardiac Index MOD 2C 2290.5 cm???/min???m??? LV Diastolic Length 2C 9.2 cm LV Systolic Length 2C 8.3 cm LA Volume 99.3 cm??? 18 - 58 / 22 - 52 cm??? LA Volume Index 30.8 cm???/m??? 16 - 28 cm???/m??? M-MODE Aortic Root Diameter MM 3.3 cm AV Cusp Separation MM 2.4 cm DOPPLER AV Peak Velocity 178.8 cm/s AV Peak Gradient 12.8 mmHg MV Area PHT 4.4 cm??? Mitral E Point Velocity 119.7 cm/s Mitral A Point Velocity 4.1 cm/s Mitral E to A Ratio 29.1 MV Deceleration Time 172.0 ms FINDINGS Left Ventricle Left ventricular ejection fraction is estimated at 55-60 %. Left ventricular cavity size normal. Mild concentric left ventricular hypertrophy. No obvious regional wall motion abnormalities. Right Ventricle Mild right ventricular dilatation. Unable to estimate the right ventricular systolic pressure. Right Atrium Right atrium not well visualized. Left Atrium Mildly increased left atrial diameter. Mildly increased left atrial volume. Mildly increased left atrial area. Mitral Valve Structurally normal mitral valve. No mitral stenosis, regurgitation or prolapse. Aortic Valve Aortic valve not well visualized. No aortic valve stenosis or regurgitation. Tricuspid Valve Tricuspid valve not well visualized. No tricuspid stenosis, regurgitation or prolapse. Pulmonic Valve Pulmonic valve not well visualized. No pulmonic regurgitation. Pericardium No pericardial effusion. Aorta Normal size aortic root and proximal ascending aorta. CONCLUSIONS Normal LV size and systolic function. No significant abnormality on the Doppler exam. No pericardial effusion. Right-sided pressures are not well [id number] Previewed by: Dr. Gordo Brewer MD (Electronically Signed) Final Date: 07 Feb 2025 08:06
[2025-02-07] MEDS: cloNIDine HCL 0.1 MG TAB PO SCH (08:23)
[2025-02-07] MEDS: predniSONE 20 MG TAB PO SCH (08:23)
--- NOTE | 2025-02-07 08:38 | XR ---
EXAMINATION TYPE: XR chest 1V portable DATE OF EXAM: 02/07/2025 4:15 AM COMPARISON: 02/06/2025 CLINICAL INDICATION: Male, 59 years old with history of F/U hypertensive urgency, pulmonary edema, , FINDINGS: Heart is mildly moderately enlarged. Diffuse interstitial and vascular densities persist. Previous pa tchy bibasilar opacities show some improvement. No sizable pleural effusion. IMPRESSION: Cardiomegaly with on going CHF. There has been some improvement in the interstitial pulmonary edema. Prominent pulmonary vascular congestion remains. [facility], , 02/07/2025 8:36 AM
[2025-02-07 11:23] LABS: Glucose,Whole Blood 344 mg/dL (70-110)
--- NOTE | 2025-02-07 12:38 | P.PN ---
Subjective Progress Note Date: 02/07/25 Morbidly obese 59-year-old male patient who presented to the emergency department with increased shortness of breath. The patient was also found to be in hypertensive emergency. Immediately, the patient was placed on a BiPAP at a pressure of 12/6 with an FiO2 of 45%. The patient was given a chest x-ray that showed CHF with interstitial edema. He also had a CT of the chest that showed no evidence of any pulmonary embolism. There was breathing motion artifact. Small bilateral pleural effusions and distal septal lines and scattered patchy groundglass pulmonary filtrates consistent with interstitial pulmonary edema. There is also scattered borderline to mildly enlarged mediastinal lymph nodes and hilar lymph nodes likely reactive. The patient was also started on clevidipine drip at 2 mg an hour for blood pressure control. Blood pressure was measured to be as high as 202/119. Currently is at 169/96 mmHg. No reported chest pain. No pleurisy. No hemoptysis. 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 He has previous history of colon cancer stage III, resected many years back and the patient was given systemic chemotherapy. White second 14.5, hemoglobin 15.1 and platelet count of 183. Electrolytes are normal within normal limits. BUN is 50 with a creatinine of 0.9. proBNP level is 435. Troponin is at 0.018. On 02/07/2025, the patient is being seen for a follow-up. Earlier this morning, the patient was still on the BiPAP pressure of 12 or 6 cm of water and FiO2 40%. The patient was on BiPAP throughout the night. The patient was taken off the BiPAP and the patient is currently on 3 L of oxygen by nasal cannula. He remains on Cleviprex at 8 mg an hour. Free of any chest pain. Less short of breath. Fluid balance is -2.8 L over the past 24 hours.The blood work from today shows a white cell count of 14, hemoglobin of 14.3 and a platelet count of 216. BUN is 18 with a creatinine 0.95 and sodium levels at 136. Troponins were negative. Blood sugars are elevated related to systemic steroids. Echocardiogram was done yesterday on 02/23/2025 and the findings are consistent with normal ejection fraction of 55 to 60%. LV size is normal. There is mild concentric left ventricular hypertrophy. Right-sided pressures were not accurately quantified. The patient is awake and alert and communicating. Objective - Vital Signs Vital signs: Vital Signs Temp 98.1 F 02/07/25 04:00 Pulse 99 02/07/25 07:57 Resp 15 02/07/25 07:00 BP 141/80 02/07/25 07:00 Pulse Ox 96 02/07/25 07:46 FiO2 40 02/07/25 04:28 Intake & Output 02/06/25 02/07/25 02/07/25 18:59 06:59 18:59 Intake Total 129.425 297.234 16.533 Output Total 3320 Balance 129.425 -3022.766 16.533 Weight 190.509 kg 225.45 kg Intake: Intake, IV Titration 129.425 297.234 16.533 Amount Clevidipine Butyrate 25 123.800 297.234 16.533 mg In Empty Bag 1 bag @ 1 MG/HR 2 mls/hr IV .Q24H [facility] Rx#:[id number] Nitroglycerin-D5w Pmx 50 5.625 mg In Dextrose/Water 1 250ml.bag @ 5 MCG/MIN 1.5 mls/hr IV .Q24H [facility] Rx#: [id number] Output: Urine 3320 Other: Voiding Method External Catheter Indwelling Catheter Indwelling Catheter # Voids 2 - Exam The patient appeared well nourished and normally developed. Vital signs as documented. The patient is morbidly obese with a BMI of 57. The patient is currently on BiPAP with mild degree of respiratory distress, tolerating the BiPAP reasonably well at a pressure of 12/6 with an FiO2 of 45%. Not using accessory muscles of breathing. The patient was taken off the BiPAP and the patient was transition to 3 L of oxygen by nasal cannula. Head exam is unremarkable. No scleral icterus or corneal arcus noted. Neck is without jugular venous distension, thyromegaly, or carotid bruits. Carotid upstrokes are brisk bilaterally. Lungs are clear to auscultation and percussion. Breath sounds are diminished bilaterally Cardiac exam reveals the PMI to be normally sized and situated. Rhythm is regu lar. First and second heart sounds normal. No murmurs, rubs or gallops. Abdominal exam reveals normal bowel sounds, no masses, no organomegaly and no aortic enlargement. Extremities are mildly edematous and the patient has chronic venous stasis in the lower extremities bilaterally. Examination of the skin revealed no evidence of significant rashes, suspicious appearing nevi or other concerning lesions. Neurologically, the patient is awake and alert and the patient does not have any focal neurological deficit. Cranial nerves are essentially intact. - Labs CBC & Chem 7: 02/07/25 05:18 02/07/25 05:18 Labs: Abnormal Lab Results - Last 24 Hours (Table) 02/06/25 02/06/25 02/06/25 Range/Units 10:32 10:32 10:32 WBC 14.57 H (4.50-10.00) 10*3/uL MPV (9.5-12.2) fL Immature Gran # 0.17 H (0.00-0.04) 10*3/uL Neutrophils # 11.95 H (1.80-7.70) 10*3/uL Basophils # 0.12 H (0.00-0.10) 10*3/uL APTT 19.6 L (22.0-30.0) sec D-Dimer 1.19 H (<0.60) mg/L FEU Sodium 136 L (137-145) mmol/L Glucose 292 H (74-99) mg/dL POC Glucose (mg/dL) (70-110) mg/dL Total Bilirubin 1.7 H (0.2-1.3) mg/dL 02/06/25 02/06/25 02/06/25 Range/Units 15:48 16:26 20:36 WBC (4.50-10.00) 10*3/uL MPV (9.5-12.2) fL Immature Gran # (0.00-0.04) 10*3/uL Neutrophils # (1.80-7.70) 10*3/uL Basophils # (0.00-0.10) 10*3/uL APTT (22.0-30.0) sec D-Dimer (<0.60) mg/L FEU Sodium (137-145) mmol/L Glucose (74-99) mg/dL POC Glucose (mg/dL) 292 H 292 H 310 H (70-110) mg/dL Total Bilirubin (0.2-1.3) mg/dL 02/07/25 02/07/25 02/07/25 Range/Units 05:18 05:18 06:24 WBC 14.00 H (4.50-10.00) 10*3/uL MPV 9.4 L (9.5-12.2) fL Immature Gran # (0.00-0.04) 10*3/uL Neutrophils # (1.80-7.70) 10*3/uL Basophils # (0.00-0.10) 10*3/uL APTT (22.0-30.0) sec D-Dimer (<0.60) mg/L FEU Sodium 136 L (137-145) mmol/L Glucose 319 H (74-99) mg/dL POC Glucose (mg/dL) 341 H (70-110) mg/dL Total Bilirubin 1.7 H (0.2-1.3) mg/dL Assessment and Plan Plan: Acute hypoxic respiratory failure due to pulmonary edema induced by hypertensive emergency. Currently off BiPAP and the patient is currently on 3 L of O2 nasal cannula Acute hypertensive emergency, currently on Cleviprex drip for blood pressure control, Cleviprex drip is running at 8 mg an hour and patient patient has a better blood pressure control. Acute dyspnea secondary to above, improving COPD maintained on Trelegy Ellipta on outpatient basis. 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 No anticoagulants History of colorectal cancer stage III, postsurgical resection followed by systemic chemotherapy back in 2003 Diabetes mellitus, with a component of steroid-induced hyperglycemia. Hypertension Plan Continue BiPAP therapy overnight and transition the patient to 3 L of oxygen during the day Continue Cleviprex drip for blood pressure control IV Lasix 40 mg every 24 hours Continue Coreg 6.25 mg p.o. twice daily Norvasc 10 mg p.o. daily Lisinopril 40 mg p.o. daily Start clonidine 1 mg p.o. 3 times daily and gradually wean off the Cleviprex to maintain a systolic blood pressure of less than 140 Discontinued IV Solu-Medrol and start the patient on prednisone burst taper. Continue blood sugar management. The patient was started on Lantus insulin 25 units twice daily and NovoLog sliding scale coverage Continue bronchodilators Continue DuoNeb updrafts Continue Symbicort Heparin subcu for DVT prophylaxis Will continue to follow. Evaluation was done and 33 minutes. This is still a critical care evaluation. Time with Patient: Greater than 30
--- NOTE | 2025-02-07 13:48 | P.PN ---
Subjective Progress Note Date: 02/07/25 59 year old M with PMH of COPD, 40-60 pack year history, history of PE with factor V leiden mutation, sleep apnea on BiPAP, hypertension, DM on insulin, history of colon CA status post resection following Dr. Jaeger and Dr. Knowles presents to the ED for shortness of breath. Symptoms ongoing for the past 2 d ays. Sudden onset. Reports a wet cough and congestion. Quit smoking 10 days ago. Supposed to see Dr. Doty in February. Also reports chronic lower extremity swelling. Denies any headache, N/V, fever or chills, chest pain, palpitations, lightheadedness, changes in urination or bowel habits. In the ED she underwent extensive evaluation. BP 202/119, HR 105, RR 26, T 98.5F, 97% on BiPAP FiO2 40%. He was 80s on non rebreather on admission. Labs significant for WBC 14.57, APTT 19.6, D-Dimer 1.19, Na 136, glu 292, Lactic acid 1.9, Mag 1.6, T. Bili 1.7, Trop 0.018, BNP 435. EKG sinus tachycardia with no ST T wave changes. CTA chest no PE, small bilateral pleural effusions with interstitial pulmonary edema, enlarged mediastinal lymph nodes, distal esophagus thickening, cholelithiasis. Patient was given updrafts, Nitro drip later switched to Clevidipine drip, Lasix IV, ASA and admitted to ICU. 02/07 Patient was seen and examined. Feeling better. On 3L NC. Maintained on Clevidipine drip at 4 mg/hr and Lasix 40 mg IV TID. Negative 2.89L fluid balance. CXR done today shows improved pulmonary vascular congestion. Echo shows EF 55-60% with mild LVH. CBC and CMP significant for WBC 14, Na 136, glu 319, T. Bili 1.7. Trop 0.026. Mag 2. General: non toxic, no distress, appears at stated age, morbidly obese on 3L NC Derm: warm, dry Head: atraumatic, normocephalic, symmetric Eyes: EOMI, no lid lag, anicteric sclera Mouth: no lip lesion, mucus membranes moist Cardiovascular: S1 S2 reg. No murmurs. Lungs: Decreased BS BL, no accessory muscle use Ext: no gross muscle atrophy, 2+ LE edema, no contractures Neuro: no focal neuro deficits Psych: Alert and oriented. Based on my assessment of this patient, this patient meets a high complexity level of care. Acute hypoxic respiratory failure secondary to acute COPD exacerbation and pulmonary edema: DuoNeb QID and Q2H PRN. Solumedrol switched to Prednisone 40 mg PO QD. Symbicort 2 INH BID. Telemetry monitoring. Wean O2. Pulmonary on board. Hypertensive emergency with flash pulmonary edema: Discussed need for repeat sleep study and titration of CPAP. Obtain renin, aldosterone, metanephrines, renal doppler, cortisol and TSH. Clevidipine drip at 4 mg/hr and titrate. Coreg 6.25 mg PO BID. + Clonidine 0.1 mg PO TID. Amlodipine 10 mg PO QHS. Lisinopril 40 mg PO HS. Cardiology on board. Diastolic CHF exacerbation: Lasix 40 mg IV QD. Strict intake and outtake. Daily weights. Monitor e-lytes and renal function. Cardiology on board. SIRS likely related to above: No signs of active infection. Monitor fever profile. Diabetes mellitus with hyperglycemia: Hold Metformin, Ozempic. Increase Lantus from 25 to 35 units BID. ISS and Accuchecks ACHS along with hypoglycemic precautions. Follow up A1c. Elevated D-Dimer: PE ruled out. Hyperbilirubinemia: Cholelithiasis on CTA chest. Trend. Esophagitis: Protonix 40 mg IV QD. History of PE with factor V leiden mutation: Outpatient follow up with Dr. Jaeger. Sleep apnea: BiPAP QHS or when short of breath. History of colon CA status post resection: Outpatient follow up with Dr. Jaeger and Dr. Knowles CODE STATUS: FULL CODE DVT Prophylaxis: Lovenox. GI Prophylaxis: Protonix IV Designated medical POA if patient is not able to make medical decisions for themselves: Brother and Mother. I have reviewed the following architectural sales consultant notes: Pulm, Cardio note. I have reviewed the results of the following tests: CBC, CMP, Mag, Trop, Echo. I have ordered the following tests: Renin, aldosterone, metanephrines, renal doppler, cortisol and TSH. A1c pending. BMP in the AM. I have discussed the care of this patient with the following independent historian: Multiple family members. I have independently interpreted the following test below: CXR I have discussed the management of this patient with the following physician: Dr. Bryant Objective - Vital Signs Vital signs: Vital Signs Temp 98.7 F 02/07/25 12:00 Pulse 89 02/07/25 13:00 Resp 18 02/07/25 13:00 BP 140/77 02/07/25 13:00 Pulse Ox 94 L 02/07/25 13:00 FiO2 40 02/07/25 04:28 Intake & Output 02/06/25 02/07/25 02/07/25 18:59 06:59 18:59 Intake Total 129.425 297.234 597.166 Output Total 3320 1150 Balance 129.425 -3022.766 -552.834 Weight 190.509 kg 225.45 kg Intake: Intake, IV Titration 129.425 297.234 77.166 Amount Clevidipine Butyrate 25 123.800 297.234 77.166 mg In Empty Bag 1 bag @ 1 MG/HR 2 mls/hr IV .Q24H [facility] Rx#:[id number] Nitroglycerin-D5w Pmx 50 5.625 mg In Dextrose/Water 1 250ml.bag @ 5 MCG/MIN 1.5 mls/hr IV .Q24H [facility] Rx#: [id number] Oral 520 Output: Urine 3320 1150 Other: Voiding Method External Catheter Indwelling Catheter Indwelling Catheter # Voids 2 - Labs CBC & Chem 7: 02/07/25 05:18 02/07/25 05:18 Labs: Abnormal Lab Results - Last 24 Hours (Table) 02/06/25 02/06/25 02/06/25 Range/Units 15:48 16:26 20:36 WBC (4.50-10.00) 10*3/uL MPV (9.5-12.2) fL Sodium (137-145) mmol/L Glucose (74-99) mg/dL POC Glucose (mg/dL) 292 H 292 H 310 H (70-110) mg/dL Total Bilirubin (0.2-1.3) mg/dL 02/07/25 02/07/25 02/07/25 Range/Units 05:18 05:18 06:24 WBC 14.00 H (4.50-10.00) 10*3/uL MPV 9.4 L (9.5-12.2) fL Sodium 136 L (137-145) mmol/L Glucose 319 H (74-99) mg/dL POC Glucose (mg/dL) 341 H (70-110) mg/dL Total Bilirubin 1.7 H (0.2-1.3) mg/dL 02/07/25 Range/Units 11:20 WBC (4.50-10.00) 10*3/uL MPV (9.5-12.2) fL Sodium (137-145) mmol/L Glucose (74-99) mg/dL POC Glucose (mg/dL) 344 H (70-110) mg/dL Total Bilirubin (0.2-1.3) mg/dL
[2025-02-07 16:01] LABS: Glucose,Whole Blood 325 mg/dL (70-110)
[2025-02-07] MEDS: carvediloL 6.25 MG TAB PO STA (18:31)
[2025-02-07 19:57] LABS: Glucose,Whole Blood 376 mg/dL (70-110)
[2025-02-07] MEDS: INSULIN GLARGINE (LANTUS) 100 UNIT/ML SYR SQ SCH (20:38)
[2025-02-08 05:02] LABS: African American GFR (CKD) 86 (>60 ml/min/1.73 sqM); Anion Gap 7 mmol/L; Blood Urea Nitrogen 27 mg/dL (9-20); Calcium 8.6 mg/dL (8.4-10.2); Carbon Dioxide 27 mmol/L (22-30); Chloride 102 mmol/L (98-107); Glucose 195 mg/dL (74-99); Non-African American GFR(CKD) 74 (>60 ml/min/1.73 sqM); Sodium 136 mmol/L (137-145)
[2025-02-08 06:20] LABS: Glucose,Whole Blood 238 mg/dL (70-110)
[2025-02-08] MEDS: PANTOPRAZOLE 40 MG TABLET PO SCH (06:38)
[2025-02-08] MEDS: carvediloL 12.5 MG TAB PO SCH (06:38)
--- NOTE | 2025-02-08 07:31 | P.PN ---
Subjective Progress Note Date: 02/08/25 The patient is a very pleasant 59-year-old gentleman with a past medical history significant for morbid obesity and sleep apnea as well as hypertension and dyslipidemia who was admitted to the hospital with hypertension emergency complicated by heart failure. The patient was in his usual state of health till last 24 to 48 hours when he started experiencing shortness of breath with exertion has progressed associated with congestions and weight gain. He presented to the hospital because he was not feeling well. No other cardiovascular symptoms of any pain in the chest or dizziness or lightheadedness or any feeling of heart racing or fluttering or presyncope or syncope. The pressure was elevated and consistent with hypertension crisis/hypertension emergency be subsequently the patient underwent further workup including an EKG showing sinus mechanism with poor R wave progression and first set of troponin came to be unremarkable chest x-ray showed finding consistent with heart failure. The patient was started on IV diuretics and also he was started on clevidipine. He stated that he has been compliant with his medications but obviously he is overweight and I am not quite sure if he is compliant with low- sodium diet and low-carb diet overall. He stated that he has been compliant with using the CPAP machine. The physical examination is remarkable for regular rhythm with distant heart sounds and diminished breathing sounds bilaterally and mild bilateral lower extremities edema February 08, 2025 The patient was seen and evaluated this morning. He is asymptomatic. The pressure has been under good control on the current medical regimen. The echo showed normal LV systolic function. The troponin is within normal limits. From the cardiovascular standpoint of view, the patient can be discharged home. The physical examination is remarkable for regular rhythm with a soft systolic m urmur and clear breathing sounds bilaterally and no edema was noted Assessment Hypertension emergency complicated by heart failure Heart failure of unknown etiology Morbid obesity Sleep apnea Multiple comorbid conditions Plan Continue the current medical regimen The patient can be discharged home Objective - Vital Signs Vital signs: Vital Signs Temp 97.7 F 02/08/25 04:00 Pulse 72 02/08/25 07:00 Resp 16 02/08/25 07:00 BP 141/83 02/08/25 07:00 Pulse Ox 96 02/08/25 07:00 FiO2 40 02/08/25 03:08 Intake & Output 02/07/25 02/08/25 02/08/25 18:59 06:59 18:59 Intake Total 598.633 500 Output Total 1900 740 Balance -1301.367 -240 Weight 198.6 kg Intake: Intake, IV Titration 78.633 Amount Clevidipine Butyrate 25 78.633 mg In Empty Bag 1 bag @ 1 MG/HR 2 mls/hr IV .Q24H [facility] Rx#:[id number] Oral 520 500 Output: Urine 1900 740 Other: Voiding Method Indwelling Catheter Indwelling Catheter - Labs CBC & Chem 7: 02/07/25 05:18 02/08/25 04:06 Labs: Abnormal Lab Results - Last 24 Hours (Table) 02/07/25 02/07/25 02/07/25 Range/Units 06:00 11:20 15:59 Sodium (137-145) mmol/L BUN (9-20) mg/dL Glucose (74-99) mg/dL POC Glucose (mg/dL) 344 H 325 H (70-110) mg/dL Hemoglobin A1c 7.0 H (<=6.0) % 02/07/25 02/08/25 02/08/25 Range/Units 19:55 04:06 06:17 Sodium 136 L (137-145) mmol/L BUN 27 H (9-20) mg/dL Glucose 195 H (74-99) mg/dL POC Glucose (mg/dL) 376 H 238 H (70-110) mg/dL Hemoglobin A1c (<=6.0) %
[2025-02-08] MEDS: FUROSEMIDE 40 MG TAB PO SCH (08:14)
--- NOTE | 2025-02-08 08:36 | US ---
EXAMINATION TYPE: US renal artery duplex complete DATE OF EXAM: 02/08/2025 COMPARISON: NONE CLINICAL INDICATION: Male, 59 years old with history of resistant HTN; Uncontrolled HTN x 2 days. No w it is controlled. Portable ICU patient. TECHNIQUE: Grayscale, color Doppler and spectral Doppler imaging of the bilateral renal arteries and kidneys. FINDINGS: MEASUREMENTS: RENAL SIZE: Right Kidney: 12.7 x 5.3 x 6.3 cm Left Kidney: 11.8 x 5.0 x 5.8 cm Right Kidney: No hydronephrosis or lesions seen Left Kidney: No hydronephrosis or lesions seen Abd Aorta: Mid and distal obscured by overlying bowel gas RESISTANCE INDEX Right: 0.68 Left: 0.62 RA/AO RATIO (< 3.5 ) Right: Unable to obtain Left: Unable to obtain RENAL ARTERY VELOCITY ( < 180 cm/s) Right: 69.9 Left: 85.8 Project Program Manager Notes: Limited due to patient body habitus and bowel gas Appropriate color Doppler flow and spectral waveforms to the kidneys bilaterally. Incidental very echogenic liver parenchyma. IMPRESSION: 1. Limited exam as the aorta is largely obscured by bowel gas shadowing. We were, therefore, unable t o obtain renal artery/aortic ratios for assessment. 2. However, the normal renal resistive indices and normal renal artery velocities do not lend support to a diagnosis of renal artery stenosis. 3. Incidental severe hepatic steatosis. Appropriate clinical management is advised. [facility], , 02/08/2025 8:34 AM
[2025-02-08] MEDS ORDERED: FUROSEMIDE 10 MG/ML 4 ML VIAL IV SCH (09:00)
--- NOTE | 2025-02-08 11:09 | P.PN ---
Subjective Progress Note Date: 02/08/25 Morbidly obese 59-year-old male patient who presented to the emergency department with increased shortness of breath. The patient was also found to be in hypertensive emergency. Immediately, the patient was placed on a BiPAP at a pressure of 12/6 with an FiO2 of 45%. The patient was given a chest x-ray that showed CHF with interstitial edema. He also had a CT of the chest that showed no evidence of any pulmonary embolism. There was breathing motion artifact. Small bilateral pleural effusions and distal septal lines and scattered patchy groundglass pulmonary filtrates consistent with interstitial pulmonary edema. There is also scattered borderline to mildly enlarged mediastinal lymph nodes and hilar lymph nodes likely reactive. The patient was also started on clevidipine drip at 2 mg an hour for blood pressure control. Blood pressure was measured to be as high as 202/119. Currently is at 169/96 mmHg. No reported chest pain. No pleurisy. No hemoptysis. 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 He has previous history of colon cancer stage III, resected many years back and the patient was given systemic chemotherapy. White second 14.5, hemoglobin 15.1 and platelet count of 183. Electrolytes are normal within normal limits. BUN is 50 with a creatinine of 0.9. proBNP level is 435. Troponin is at 0.018. On 02/07/2025, the patient is being seen for a follow-up. Earlier this morning, the patient was still on the BiPAP pressure of 12 or 6 cm of water and FiO2 40%. The patient was on BiPAP throughout the night. The patient was taken off the BiPAP and the patient is currently on 3 L of oxygen by nasal cannula. He remains on Cleviprex at 8 mg an hour. Free of any chest pain. Less short of breath. Fluid balance is -2.8 L over the past 24 hours.The blood work from today shows a white cell count of 14, hemoglobin of 14.3 and a platelet count of 216. BUN is 18 with a creatinine 0.95 and sodium levels at 136. Troponins were negative. Blood sugars are elevated related to systemic steroids. Echocardiogram was done yesterday on 02/23/2025 and the findings are consistent with normal ejection fraction of 55 to 60%. LV size is normal. There is mild concentric left ventricular hypertrophy. Right-sided pressures were not accurately quantified. The patient is awake and alert and communicating. 02/08/2025, patient is doing well. The patient is awake and alert. Overnight, the patient was on BiPAP at a pressure of 12 or 60 minutes of water and FiO2 40%. Currently, he is on room air oxygen. Resting comfortably in bed. Blood pressure still being monitored and a renal artery ultrasound Doppler was ordered. Most recent BP is 150/36. The patient is currently off Cleviprex and the medication was discontinued 1 PM yesterday. The patient is currently on Coreg 12.5 mg twice a day, Norvasc 10 mg p.o. daily, Zestril 40 mg p.o. daily, clonidine 0.1 mg 3 times daily. The patient is also on IV Lasix. The fluid balance has been negative over the past 24 hours in the order of 1.5 L. The sodium levels at 136, BUN 27 with a creatinine of 1.1 and a potassium levels of 4.0. The patient is currently on room air oxygen. Denies having any chest pain. Denies any significant shortness of breath. No other significant events overnight. Objective - Vital Signs Vital signs: Vital Signs Temp 98.4 F 02/08/25 08:00 Pulse 77 02/08/25 08:09 Resp 22 02/08/25 08:00 BP 150/86 02/08/25 08:00 Pulse Ox 94 L 02/08/25 08:00 FiO2 40 02/08/25 07:54 Intake & Output 02/07/25 02/08/25 02/08/25 18:59 06:59 18:59 Intake Total 598.633 500 540 Output Total 1900 740 475 Balance -1301.367 -240 65 Weight 198.6 kg Intake: Intake, IV Titration 78.633 Amount Clevidipine Butyrate 25 78.633 mg In Empty Bag 1 bag @ 1 MG/HR 2 mls/hr IV .Q24H [facility] Rx#:[id number] Oral 520 500 540 Output: Urine 1900 740 475 Other: Voiding Method Indwelling Catheter Indwelling Catheter Indwelling Catheter - Exam The patient appeared well nourished and normally developed. Vital signs as documented. The patient is morbidly obese with a BMI of 57. The patient is currently on room air oxygen. Head exam is unremarkable. No scleral icterus or corneal arcus noted. Neck is without jugular venous distension, thyromegaly, or carotid bruits. Carotid upstrokes are brisk bilaterally. Lungs are clear to auscultation and percussion. Breath sounds are diminished bilaterally Cardiac exam reveals the PMI to be normally sized and situated. Rhythm is reg ular. First and second heart sounds normal. No murmurs, rubs or gallops. Abdominal exam reveals normal bowel sounds, no masses, no organomegaly and no aortic enlargement. Extremities are mildly edematous and the patient has chronic venous stasis in the lower extremities bilaterally. Examination of the skin revealed no evidence of significant rashes, suspicious appearing nevi or other concerning lesions. Neurologically, the patient is awake and alert and the patient does not have any focal neurological deficit. Cranial nerves are essentially intact. - Labs CBC & Chem 7: 02/07/25 05:18 02/08/25 04:06 Labs: Abnormal Lab Results - Last 24 Hours (Table) 02/07/25 02/07/25 02/07/25 Range/Units 06:00 11:20 15:59 Sodium (137-145) mmol/L BUN (9-20) mg/dL Glucose (74-99) mg/dL POC Glucose (mg/dL) 344 H 325 H (70-110) mg/dL Hemoglobin A1c 7.0 H (<=6.0) % Cortisol (3.1-22.4) UG/DL 02/07/25 02/08/25 02/08/25 Range/Units 19:55 04:06 06:17 Sodium 136 L (137-145) mmol/L BUN 27 H (9-20) mg/dL Glucose 195 H (74-99) mg/dL POC Glucose (mg/dL) 376 H 238 H (70-110) mg/dL Hemoglobin A1c (<=6.0) % Cortisol <1.5 L (3.1-22.4) UG/DL Assessment and Plan Plan: Acute hypoxic respiratory failure due to pulmonary edema induced by hypertensive emergency, recovered and the patient is currently on room air oxygen Acute hypertensive emergency, recovered and the patient is off Cleviprex drip. Blood pressures under better control. Acute dyspnea secondary to above, recovered COPD maintained on Trelegy Ellipta on outpatient basis. 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 No anticoagulants History of colorectal cancer stage III, postsurgical resection followed by systemic chemotherapy back in 2003 Diabetes mellitus, with a component of steroid-induced hyperglycemia. Hypertension Plan Off BiPAP and the patient is currently on room air oxygen Off Cleviprex drip Changed to oral Lasix 40 mg p.o. daily Continue Coreg 12.5 mg p.o. twice daily Norvasc 10 mg p.o. daily Lisinopril 40 mg p.o. daily clonidine 1 mg p.o. 3 times daily Discontinued IV Solu-Medrol put the patient on oral prednisone Continue bronchodilators Continue DuoNeb updrafts Continue Symbicort Heparin subcu for DVT prophylaxis Renal artery Dopplers Transfer to medical surgical floor Time with Patient: Greater than 30
[2025-02-08 11:11] LABS: Glucose,Whole Blood 247 mg/dL (70-110)
[2025-02-08 12:07] VITALS: BP 153/87; PULSE 69; RESP 18; TEMP 97.8
--- NOTE | 2025-02-08 14:09 | P.DS ---
Providers Date of admission: 02/06/25 12:21 Expected date of discharge: 02/08/25 Attending physician: Isaac Zavala Consults: 02/06/25 11:56 Consult Physician Routine Consulting Provider: Blossom Bryant Consult Reason/Comments: hypoxic resp failure on bipap. pulm edema/chf and copd Do you want consulting provider notified?: Yes 02/06/25 11:58 Consult Physician Routine Consulting Provider: [facility] Consult Reason/Comments: hypertensive emergency, chf Do you want consulting provider notified?: Yes Primary care physician: [facility] Course: 59 year old M with PMH of COPD, 40-60 pack year history, history of PE with factor V leiden mutation, sleep apnea on BiPAP, hypertension, DM on insulin, history of colon CA status post resection following Dr. Jaeger and Dr. Knowles presents to the ED for shortness of breath. Symptoms ongoing for the past 2 days. Sudden onset. Reports a wet cough and congestion. Quit smoking 10 days ago. Supposed to see Dr. Doty in February. Also reports chronic lower extremity swelling. Denies any headache, N/V, fever or chills, chest pain, palpitations, lightheadedness, changes in urination or bowel habits. In the ED she underwent extensive evaluation. BP 202/119, HR 105, RR 26, T 98.5F, 97% on BiPAP FiO2 40%. He was 80s on non rebreather on admission. Labs significant for WBC 14.57, APTT 19.6, D-Dimer 1.19, Na 136, glu 292, Lactic acid 1.9, Mag 1.6, T. Bili 1.7, Trop 0.018, BNP 435. EKG sinus tachycardia with no ST T wave changes. CTA chest no PE, small bilateral pleural effusions with interstitial pulmonary edema, enlarged mediastinal lymph nodes, distal esophagus thickening, cholelithiasis. Patient was given updrafts, Nitro drip later switched to Clevidipine drip, Lasix IV, ASA and admitted to ICU. 02/07 Patient was seen and examined. Feeling better. On 3L NC. Maintained on Clevidipine drip at 4 mg/hr and Lasix 40 mg IV TID. Negative 2.89L fluid balance. CXR done today shows improved pulmonary vascular congestion. Echo shows EF 55-60% with mild LVH. CBC and CMP significant for WBC 14, Na 136, glu 319, T. Bili 1.7. Trop 0.026. Mag 2. 02/08 Patient was seen and examined. Feeling well. O2 and Clevidipine drip weaned off. Cardiology and Pulmonary has cleared the patient for discharge. Renal doppler suboptimal but no signs of renal artery stenosis. Cortisol < 1.5. TSH 1.77. Aldosterone 12.4. BMP Na 136, BUN 27, glu 195. Discharge Plan: Obtain nebulizer discussed with Kurt MCKEON. Prescriptions sent for Clonidine, Amlodipine, DuoNeb, Lasix, Coreg, Lisinopril and Protonix. Continue Trelegy and Albuterol. Continue Metformin and Insulin along with Semaglutide. Advised to follow up with PCP for results of metanephrine and renin. Advised low salt diet. Follow up with PCP within 1-2 days, Cardiology on 02/[address] Doty on 02/26. Discussed need for repeat sleep study and titration of CPAP. General: non toxic, no distress, appears at stated age, morbidly obese on RA Derm: warm, dry Head: atraumatic, normocephalic, symmetric Eyes: EOMI, no lid lag, anicteric sclera Mouth: no lip lesion, mucus membranes moist Cardiovascular: S1 S2 reg. No murmurs. Lungs: Decreased BS BL, no accessory muscle use Ext: no gross muscle atrophy, 1+ LE edema, no contractures Neuro: no focal neuro deficits Psych: Alert and oriented. Discharge Diagnosis: Acute hypoxic respiratory failure secondary to acute COPD exacerbation and pulmonary edema Diastolic CHF exacerbation SIRS likely related to above Diabetes mellitus with hyperglycemia Elevated D-Dimer Hyperbilirubinemia Esophagitis History of PE with factor V leiden mutation Sleep apnea History of colon CA status post resection This complex discharge took 35 minutes to complete. Patient Condition at Discharge: Stable Plan - Discharge Summary Discharge Rx Participant: No New Discharge Prescriptions: New cloNIDine HCL [Catapres] 0.1 mg PO TID #90 tab Ipratropium-Albuterol Nebulize [Duoneb 0.5 mg-3 mg/3 ml Soln] 3 ml INHALATION RT-Q6H PRN #120 each PRN Reason: Shortness Of Breath Or Wheezing Furosemide [Lasix] 40 mg PO DAILY #30 tab carvediloL [Coreg*] 12.5 mg PO BID-W/MEALS #60 tab Pantoprazole [Protonix] 40 mg PO AC-BRKFST tab Continue Albuterol Inhaler [Ventolin Hfa Inhaler] 2 puff INHALATION RT-BID Fluticasone/Umeclidin/Vilanter [Trelegy Ellipta 200-62.5-25] 1 puff INHALATION RT-DAILY@1200 metFORMIN HCL [metFORMIN HCL ER Osmotic] 1,000 mg PO HS amLODIPine [Norvasc] 10 mg PO DAILY #30 tab Insulin Lispro Protamin/Lispro [HumaLOG Mix 75-25] 80 unit SQ BID Semaglutide [Ozempic] 2 mg SQ STOVER Dextromethorphn/Acetaminoph/Cp [Coricidin Hbp Flu Tablet] 1 tab PO DAILY PRN PRN Reason: Congestion lisinopriL 40 mg PO DAILY #30 tab Discontinued Metoprolol Succinate (ER) [Toprol Xl] 100 mg PO DAILY cloNIDine HCL [Catapres] 0.1 mg PO Q6H PRN PRN Reason: SBP>160 carvediloL [Coreg] 6.25 mg PO BID-W/MEALS Discharge Medication List Albuterol Inhaler [Ventolin Hfa Inhaler] 2 puff INHALATION RT-BID 03/06/20 [Hist ory] Dextromethorphn/Acetaminoph/Cp [Coricidin Hbp Flu Tablet] 1 tab PO DAILY PRN 02/06/25 [History] Fluticasone/Umeclidin/Vilanter [Trelegy Ellipta 200-62.5-25] 1 puff INHALATION RT-DAILY@1200 02/06/25 [History] Insulin Lispro Protamin/Lispro [HumaLOG Mix 75-25] 80 unit SQ BID 02/06/25 [History] Semaglutide [Ozempic] 2 mg SQ STOVER 02/06/25 [History] metFORMIN HCL [metFORMIN HCL ER Osmotic] 1,000 mg PO HS 02/06/25 [History] Furosemide [Lasix] 40 mg PO DAILY #30 tab 02/08/25 [Rx] Ipratropium-Albuterol Nebulize [Duoneb 0.5 mg-3 mg/3 ml Soln] 3 ml INHALATION RT-Q6H PRN #120 each 02/08/25 [Rx] Pantoprazole [Protonix] 40 mg PO AC-BRKFST tab 02/08/25 [Rx] amLODIPine [Norvasc] 10 mg PO DAILY #30 tab 02/08/25 [Rx] carvediloL [Coreg*] 12.5 mg PO BID-W/MEALS #60 tab 02/08/25 [Rx] cloNIDine HCL [Catapres] 0.1 mg PO TID #90 tab 02/08/25 [Rx] lisinopriL 40 mg PO DAILY #30 tab 02/08/25 [Rx] Follow up Appointment(s)/Referral(s): [facility] [NON-STAFF] - 1 Week Jordan Doty DO [Doctor of Osteopathic Medicine] - 02/26/25 9:30 am None,Stated [REFERRING] - 1-2 days Dominic Hannah MD [STAFF PHYSICIAN] - 02/20/25 8:45 am Patient Instructions/Handouts: Heart Failure (ER) Activity/Diet/Wound Care/Special Instructions: Diet: Low salt Discharge Disposition: HOME SELF-CARE
== END 2025-02-08 14:20 | disposition home or self-care (01) | DRG 291 ==
LOC: EC 10:15 → 2SICU 12:21
PROVIDERS: ADMIT Student in an Organized Health Care Education/Training Program; ATTEND Student in an Organized Health Care Education/Training Program
PROC: 5A09357 Assistance with Respiratory Ventilation, Less than 24 Consecutive Hours, Continuous Positive Airway Pressure (ICD-10-PCS; principal; 2025-02-06)
DX: I11.0 Hypertensive heart disease with heart failure (principal); I50.33 Acute on chronic diastolic (congestive) heart failure; J96.01 Acute respiratory failure with hypoxia; J44.1 Chronic obstructive pulmonary disease with (acute) exacerbation; I16.1 Hypertensive emergency; D68.51 Activated protein C resistance; E11.65 Type 2 diabetes mellitus with hyperglycemia; Z68.43 Body mass index [BMI] 50.0-59.9, adult; Z95.828 Presence of other vascular implants and grafts; R65.10 Systemic inflammatory response syndrome (SIRS) of non-infectious origin without acute organ dysfunction; E66.01 Morbid (severe) obesity due to excess calories; Z79.4 Long term (current) use of insulin; K20.90 Esophagitis, unspecified without bleeding; I87.8 Other specified disorders of veins; G47.33 Obstructive sleep apnea (adult) (pediatric); E78.5 Hyperlipidemia, unspecified; R59.0 Localized enlarged lymph nodes; T38.0X5A Adverse effect of glucocorticoids and synthetic analogues, initial encounter; K80.20 Calculus of gallbladder without cholecystitis without obstruction; Z86.711 Personal history of pulmonary embolism; Z98.84 Bariatric surgery status; Z79.85 Long-term (current) use of injectable non-insulin antidiabetic drugs; Z79.51 Long term (current) use of inhaled steroids; Z79.84 Long term (current) use of oral hypoglycemic drugs; Z85.038 Personal history of other malignant neoplasm of large intestine; Z87.891 Personal history of nicotine dependence; Z79.899 Other long term (current) drug therapy; Z90.49 Acquired absence of other specified parts of digestive tract; Z92.21 Personal history of antineoplastic chemotherapy; Z86.718 Personal history of other venous thrombosis and embolism
CPT/HCPCS: 36415; 71045; 71275; 80048; 80053; 82088; 82533; 83036; 83605; 83735; 83835; 83880; 84244; 84443; 84484; 85025; 85027; 85379; 85610; 85730; 93005; 93306; 93975; 94640; 94660; 96365; 96366; 96375; 99291

== ENCOUNTER → 2025-03-05 | Outpatient (CLI) | payer OTHER ==
--- NOTE | 2025-03-05 09:16 | US ---
EXAMINATION TYPE: US liver DATE OF EXAM: 03/05/2025 COMPARISON: CT abdomen and pelvis 01/23/2022, renal ultrasound artery duplex 02/08/2025 CLINICAL INDICATION: Male, 59 years old with history of E80.6 HYPERBILIRUBINEMIA; CHF, HTN TECHNIQUE: Grayscale and color Doppler imaging of the right upper quadrant. FINDINGS: EXAM MEASUREMENTS: Liver Length: 19.5 cm Gallbladder Wall: 0.2 cm CBD: 0.4 cm, color Doppler imaging was utilized to isolate the common bile duct for measurement. Right Kidney: 12.1X6.3X5.8 cm DAMPENER NOTES: VERY LIMITED SCAN DUE TO SEVERE OT BODY HABITUS & OVERLYING BOWEL Pancreas: obscured by bowel/gas Liver: Increased attenuation, decreased visualization of vessels suggestive of fatty infiltrate, armando ble to penetrate, very limited views, obscured by bowel & difficult to visualize Gallbladder: ?possible echogenic foci seen supine:1.4cm, not well seen LLD Evidence for sonographic Diaz's sign: No CBD: slightly obscured by bowel Right Kidney: No hydronephrosis or masses seen, limited visualization Pancreas is obscured by overlying bowel gas. The liver is enlarged with increased echogenicity. No gr oss evidence of focal lesion. Gallstone is identified. No wall thickening or surrounding fluid. Negat lázaro sonographic Diaz sign. Common bile appears grossly within normal limits but is slightly obscure d by overlying bowel. The visualized portions of the right kidney demonstrate no hydronephrosis, shad owing calculus or solid mass. IMPRESSION: Limited examination due to patient's body habitus and overlying bowel gas. 1. No ultrasound evidence for acute process. 2. Cholelithiasis without evidence for acute cholecystitis. 3. Hepatomegaly with diffuse fatty infiltration. [facility], , 03/05/2025 9:13 AM
== END | disposition home or self-care (01) ==
LOC: RADUSWWP 08:21
PROVIDERS: ATTEND Internal Medicine
DX: E80.6 Other disorders of bilirubin metabolism (principal); I50.9 Heart failure, unspecified; I11.0 Hypertensive heart disease with heart failure; K80.20 Calculus of gallbladder without cholecystitis without obstruction; K76.0 Fatty (change of) liver, not elsewhere classified; R16.0 Hepatomegaly, not elsewhere classified
CPT/HCPCS: 76705

== ENCOUNTER 2025-03-20 08:01 | Day surgery (SDC) | payer OTHER ==
[2025-03-16 12:03] VITALS: BMI 57.6
[~2025-03-20 08:01] MED LIST changes: +LIDOCAINE 1% (10MG/ML) FOR IV START INTRADERMA PRN; -REGADENOSON 0.4 MG/5 ML SYRINGE IV PRN
[2025-03-20] MEDS: IV FLUID CONTINUATION 1,000 ML IV ONE (08:23)
[2025-03-20 08:27] VITALS: TEMP 98.5
[2025-03-20 08:35] LABS: Glucose,Whole Blood 178 mg/dL (70-110)
[2025-03-20] MEDS: LACTATED RINGERS 1,000 ML IV SCH (08:36)
[2025-03-20] MEDS ORDERED: KETAMINE HCL IN 0.9 % NACL 50 MG/5 ML SYRINGE ONE (08:56)
[2025-03-20] MEDS ORDERED: LIDOCAINE 1% INJ 10MG/ML (20 ML MDV) ONE (08:56)
[2025-03-20] MEDS ORDERED: PROPOFOL 10 MG/ML 20 ML VIAL IV ONE (08:56)
--- NOTE | 2025-03-20 08:59 | P.GSHP ---
History of Present Illness H&P Date: 03/20/25 Chief Complaint: Colon cancer screening 59-year-old male here for colonoscopy. Last colonoscopy 5 years ago. Patient with history of stage III right colon cancer at the age of 38. No symptoms currently. Past Medical History Past Medical History: Cancer, Heart Failure, COPD, Diabetes Mellitus, Deep Vein Thrombosis (DVT), Hyperlipidemia, Hypertension, Pulmonary Embolus (PE), Sleep Apnea/CPAP/BIPAP Additional Past Medical History / Comment(s): COLON CANCER STAGE 3, HISTORY OF FACTOR 5, HAS A GREEN FIELD FILTER, Saddle PE, hypertensive crisis with heart failure and respiratory failure 02/06/25 ([facility] ICU) History of Any Multi-Drug Resistant Organisms: None Reported Past Surgical History: Bariatric Surgery, Bowel Resection, Hernia Repair Additional Past Surgical History / Comment(s): INSERTION GREEN FIELD FILTER, CLOTS REMOVED FROM GREEN FIELD, lap band 1999 Past Anesthesia/Blood Transfusion Reactions: No Reported Reaction Past Psychological History: No Psychological Hx Reported Smoking Status: Former smoker Past Alcohol Use History: Occasional Additional Past Alcohol Use History / Comment(s): quit smoking January 2025 Past Drug Use History: Marijuana Additional Drug Use History / Comment(s): marijuana edibles on rare occasion- aware to refrain 24 hrs prior to procedure - Past Family History Mother Family Medical History: No Reported History Medications and Allergies Home Medications Medication Instructions Recorded Confirmed Type Albuterol Inhaler [Ventolin Hfa 2 puff INHALATION RT-BID PRN 03/06/20 03/20/25 History Inhaler] Fluticasone/Umeclidin/Vilanter 1 puff INHALATION RT-DAILY@1200 02/06/25 03/20/25 History [Trelegy Ellipta 200-62.5-25] metFORMIN HCL [metFORMIN HCL ER 1,000 mg PO HS 02/06/25 03/20/25 History Osmotic] Furosemide [Lasix] 40 mg PO DAILY #30 tab 02/08/25 03/20/25 Rx Ipratropium-Albuterol Nebulize 3 ml INHALATION RT-Q6H PRN #120 02/08/25 03/20/25 Rx [Duoneb 0.5 mg-3 mg/3 ml Soln] each amLODIPine [Norvasc] 10 mg PO DAILY #30 tab 02/08/25 03/20/25 Rx carvediloL [Coreg*] 12.5 mg PO BID-W/MEALS #60 tab 02/08/25 03/20/25 Rx lisinopriL 40 mg PO DAILY #30 tab 02/08/25 03/20/25 Rx Insulin NPL/Insulin Lispro 0 units SQ BID-W/MEALS 03/16/25 03/20/25 History [humaLOG MIX 75-25 VIAL] cloNIDine HCL [Catapres] 0.1 mg PO TID PRN 03/16/25 03/20/25 History Allergies Allergy/AdvReac Type Severity Reaction Status Date / Time No Known Allergies Allergy Verified 03/20/25 08:19 Surgical - Exam Vital Signs Temp Pulse Resp BP Pulse Ox 98.5 F 91 18 186/93 97 03/20/25 08:26 03/20/25 08:26 03/20/25 08:26 03/20/25 08:26 03/20/25 08:26 Physical exam: General: Well-developed, well-nourished HEENT: Normocephalic, sclerae nonicteric Abdomen: Nontender, nondistended Extremities: No edema Neuro: Alert and oriented Results - Labs Abnormal Lab Results - Last 24 Hours (Table) 03/20/25 Range/Units 08:32 POC Glucose (mg/dL) 178 H (70-110) mg/dL Assessment and Plan (1) History of colon cancer Narrative/Plan: Will proceed with colonoscopy at this time. Current Visit: Yes Status: Acute Code(s): Z85.038 - PERSONAL HISTORY OF MALIGNANT NEOPLASM OF LARGE INTESTINE SNOMED Code(s): 941013754
--- NOTE | 2025-03-20 09:11 | P.PCN ---
Date of Procedure: 03/20/25 Procedure(s) Performed: PREOPERATIVE DIAGNOSIS: History of colon cancer POSTOPERATIVE DIAGNOSIS: Status post right colectomy, distal descending colon polyp PROCEDURE: Colonoscopy with snare polypectomy ANESTHESIA: MAC SURGEON: Anthony Knowles M.D. SPECIMENS: Polyp ENDOSCOPIC PROCEDURE: The patient was placed on the endoscopy table in the left decubitus position. The Olympus colonoscope was inserted into the anus and passed under direct visualization to the ileocolonic anastomosis. From that point the scope was slowly withdrawn inspecting all surfaces carefully. The patient had some prominent veins at the anastomotic site. No bleeding was seen. There were no neoplastic inflammatory or polypoid lesions throughout the transverse colon and proximal descending colon. At the distal descending colon close to the sigmoid there was a 9 to 10 mm polyp that was removed using the snare with cautery technique. The remainder of the sigmoid and rectum was normal. There was no diverticulosis noted. Digital rectal examination was normal. The patient was taken to the recovery room in stable condition per anesthesia guidelines. RECOMMENDATIONS: Recommend repeat colonoscopy 3 to 5 years. Await results to determine timing
[2025-03-20 09:23] VITALS: BP 118/75
[2025-03-20 09:42] VITALS: PULSE 90; RESP 20
== END 2025-03-20 09:54 | disposition home or self-care (01) ==
LOC: ORWHC2ENDO 08:01
PROVIDERS: ATTEND Surgery
DX: Z12.11 Encounter for screening for malignant neoplasm of colon (principal); D12.4 Benign neoplasm of descending colon; Z85.038 Personal history of other malignant neoplasm of large intestine; E78.5 Hyperlipidemia, unspecified; I11.0 Hypertensive heart disease with heart failure; I50.9 Heart failure, unspecified; E11.51 Type 2 diabetes mellitus with diabetic peripheral angiopathy without gangrene; G47.33 Obstructive sleep apnea (adult) (pediatric); K21.9 Gastro-esophageal reflux disease without esophagitis; J44.9 Chronic obstructive pulmonary disease, unspecified; D68.51 Activated protein C resistance; Z79.84 Long term (current) use of oral hypoglycemic drugs; Z79.899 Other long term (current) drug therapy; Z79.4 Long term (current) use of insulin; Z86.718 Personal history of other venous thrombosis and embolism; Z86.711 Personal history of pulmonary embolism; Z90.49 Acquired absence of other specified parts of digestive tract; Z98.890 Other specified postprocedural states; Z87.891 Personal history of nicotine dependence; Z98.84 Bariatric surgery status
CPT/HCPCS: 88305; 45385; J2003; J2704

== ENCOUNTER 2025-03-23 16:52 | Emergency (ER) | payer OTHER ==
[2025-03-23 17:41] VITALS: TEMP 97.9
--- NOTE | 2025-03-23 19:36 | ED ---
GI Bleed HPI - General Chief complaint: GI Bleed Stated complaint: Post op comp colonoscopy Time Seen by Provider: 03/23/25 19:36 Source: patient Mode of arrival: ambulatory Limitations: no limitations - History of Present Illness Initial comments: 59-year-old male presented with chief complaint of rectal bleeding. Patient had a colonoscopy with Dr. Knowles on the . He reports that he had 1 polyp removed. He has a remote history of colon cancer. He reports that afterwards he started having bright red blood in his bowel movements. He denies any nausea or vomiting. No fever. No history of diverticulitis. - Related Data Home Medications Medication Instructions Recorded Confirmed Albuterol Inhaler [Ventolin Hfa 2 puff INHALATION RT-BID PRN 03/06/20 03/20/25 Inhaler] Fluticasone/Umeclidin/Vilanter 1 puff INHALATION RT-DAILY@1200 02/06/25 03/20/25 [Trelegy Ellipta 200-62.5-25] metFORMIN HCL [metFORMIN HCL ER 1,000 mg PO HS 02/06/25 03/20/25 Osmotic] Insulin NPL/Insulin Lispro 0 units SQ BID-W/MEALS 03/16/25 03/20/25 [humaLOG MIX 75-25 VIAL] cloNIDine HCL [Catapres] 0.1 mg PO TID PRN 03/16/25 03/20/25 Previous Rx's Medication Instructions Recorded Furosemide [Lasix] 40 mg PO DAILY #30 tab 02/08/25 Ipratropium-Albuterol Nebulize 3 ml INHALATION RT-Q6H PRN #120 02/08/25 [Duoneb 0.5 mg-3 mg/3 ml Soln] each amLODIPine [Norvasc] 10 mg PO DAILY #30 tab 02/08/25 carvediloL [Coreg*] 12.5 mg PO BID-W/MEALS #60 tab 02/08/25 lisinopriL 40 mg PO DAILY #30 tab 02/08/25 Allergies Allergy/AdvReac Type Severity Reaction Status Date / Time No Known Allergies Allergy Verified 03/23/25 17:41 Review of Systems ROS Statement: Those systems with pertinent positive or pertinent negative responses have been documented in the HPI. ROS Other: All systems not noted in ROS Statement are negative. Past Medical History Past Medical History: Cancer, Heart Failure, COPD, Diabetes Mellitus, Deep Vein Thrombosis (DVT), Hyperlipidemia, Hypertension, Pulmonary Embolus (PE), Sleep Apnea/CPAP/BIPAP Additional Past Medical History / Comment(s): COLON CANCER STAGE 3, HISTORY OF FACTOR 5, HAS A GREEN FIELD FILTER, Saddle PE, hypertensive crisis with heart failure and respiratory failure 02/06/25 ([facility] ICU) History of Any Multi-Drug Resistant Organisms: None Reported Past Surgical History: Bariatric Surgery, Bowel Resection, Hernia Repair Additional Past Surgical History / Comment(s): INSERTION GREEN FIELD FILTER, CLOTS REMOVED FROM GREEN FIELD, lap band 1999 Past Anesthesia/Blood Transfusion Reactions: No Reported Reaction Past Psychological History: No Psychological Hx Reported Smoking Status: Former smoker Past Alcohol Use History: Occasional Past Drug Use History: Marijuana - Past Family History Mother Family Medical History: No Reported History General Exam Limitations: no limitations General appearance: alert, in no apparent distress Head exam: Present: atraumatic, normocephalic, normal inspection Eye exam: Present: normal appearance, EOMI Neck exam: Present: normal inspection. Absent: meningismus Respiratory exam: Present: normal lung sounds bilaterally. Absent: respiratory distress, wheezes, rales, rhonchi, stridor Cardiovascular Exam: Present: regular rate, normal rhythm, normal heart sounds. Absent: systolic murmur, diastolic murmur, rubs, gallop, clicks GI/Abdominal exam: Present: soft. Absent: distended, tenderness, guarding, rebound, rigid Neurological exam: Present: alert, oriented X3 Psychiatric exam: Present: normal affect, normal mood Skin exam: Present: warm, dry, normal color Course Vital Signs 03/23/25 03/23/25 03/23/25 17:38 20:37 22:20 Temperature 97.9 F Pulse Rate 112 H 87 98 Respiratory 20 17 17 Rate Blood Pressure 197/95 153/81 170/94 O2 Sat by Pulse 99 98 95 Oximetry Medical Decision Making - Medical Decision Making Was pt. sent in by a medical professional or institution (, PA, TAKER AWAY, urgent care, hospital, or correction...) When possible be specific @ -No Did you speak to anyone other than the patient for history (EMS, parent, family, police, friend...)? What history was obtained from this source @ -No Did you review nursing and triage notes (agree or disagree)? Why? @ -I reviewed and agree with nursing and triage notes Were old charts reviewed (outside hosp., previous admission, EMS record, old EKG, old radiological studies, urgent care reports/EKG's, correction records)? Report findings @ -No old charts were reviewed Differential Diagnosis (chest pain, altered mental status, abdominal pain women, abdominal pain men, vaginal bleeding, weakness, fever, dyspnea, syncope, headache, dizziness, GI bleed, back pain, seizure, CVA, palpatations, mental health, musculoskeletal)? @ -MDM Differential GI Bleed: Esophageal varices, aortoenteric fistula, Melissa-Jain, gastritis, peptic ulcer disease, diverticulosis, inflammatory bowel disease, hemorrhoids, fissure, colitis, malignancy, Meckel’s diverticulum… this is not meant to be an all- inclusive list. EKG interpreted by me (3pts min.). @ -As above X-rays interpreted by me (1pt min.). @ -None done CT interpreted by me (1pt min.). @ -CT shows no acute abnormality in the abdomen/pelvis. Specifically no evidence of upper or lower gastrointestinal bleeding U/S interpreted by me (1pt. min.). @ -None done What testing was considered but not performed or refused? (CT, X-rays, U/S, labs)? Why? @ -None What meds were considered but not given or refused? Why? @ -None Did you discuss the management of the patient with other professionals (professionals i.e. , PA, TAKER AWAY, lab, RT, psych nurse, social worker health services, tank house operator, teacher, communications officer, case assembler)? Give summary @ -No Was smoking cessation discussed for >3mins.? @ -No Was critical care preformed (if so, how long)? @ -No Were there social determinants of health that impacted care today? How? (Homelessness, low income, unemployed, alcoholism, drug addiction, transportation, low edu. Level, literacy, decrease access to med. care, usp, rehab)? @ -No Was there de-escalation of care discussed even if they declined (Discuss DNR or withdrawal of care, Hospice)? DNR status @ -No What co-morbidities impacted this encounter? (DM, HTN, Smoking, COPD, CAD, Cancer, CVA, ARF, Chemo, Hep., AIDS, mental health diagnosis, sleep apnea, morbid obesity)? @ -None Was patient admitted / discharged? Hospital course, mention meds given and route, prescriptions, significant lab abnormalities, going to OR and other pertinent info. @ -59-year-old male presenting with chief complaint of bright red blood from the rectum. He had a colonoscopy a few days ago with 1 polyp removed. History and physical examination are conducted. Lab work shows no leukocytosis or anemia. Vital signs are stable. CT shows no acute process. Considering that the patient's labs are stable and he is hemodynamically stable, he will be discharged and follow-up with his surgeon. Follow-up with PCP. Report back to ER with any new or worsening symptoms. Discussed return parameters and answered all questions. Patient conveyed verbal understanding and agreed to the plan. I discussed this case in detail with my attending Dr. Barahona Undiagnosed new problem with uncertain prognosis? @ -No Drug Therapy requiring intensive monitoring for toxicity (Heparin, Nitro, Insulin, Cardizem)? @ -No Were any procedures done? @ -No Diagnosis/symptom? @ -Rectal bleeding Acute, or Chronic, or Acute on Chronic? @ -Acute Uncomplicated (without systemic symptoms) or Complicated (systemic symptoms)? @ -Uncomplicated Side effects of treatment? @ -No Exacerbation, Progression, or Severe Exacerbation? @ -No Poses a threat to life or bodily function? How? (Chest pain, USA, MS, pneumonia, PE, COPD, DKA, ARF, appy, cholecystitis, CVA, Diverticulitis, Homicidal, Suicidal, threat to staff... and all critical care pts) @ -Unlikely - Lab Data Result diagrams: 03/23/25 20:23 03/23/25 20:23 Lab Results 03/23/25 03/23/25 03/23/25 Range/Units 19:46 20:23 20:23 WBC 8.72 (4.50-10.00) 10*3/uL RBC 4.37 L (4.40-5.60) 10*6/uL Hgb 13.3 (13.0-17.0) g/dL Hct 38.2 L (39.6-50.0) % MCV 87.4 (80.0-97.0) fL MCH 30.4 (27.0-32.0) pg MCHC 34.8 (32.0-37.0) g/dL Plt Count 221 (140-440) 10*3/uL MPV 9.9 (9.5-12.2) fL Immature Gran % (Auto) 1.0 % Neutrophils % 61.3 % Lymphocytes % 23.9 % Monocytes % 8.5 % Eosinophils % 4.4 % Basophils % 0.9 % Immature Gran # 0.09 H (0.00-0.04) 10*3/uL Neutrophils # 5.35 (1.80-7.70) 10*3/uL Lymphocytes # 2.08 (0.90-5.00) 10*3/uL Monocytes # 0.74 (0.20-1.00) 10*3/uL Eosinophils # 0.38 H (0.04-0.35) 10*3/uL Basophils # 0.08 (0.00-0.10) 10*3/uL PT 11.1 (10.0-12.5) sec INR 1.0 (<1.2) APTT 22.8 (22.0-30.0) sec Sodium (137-145) mmol/L Potassium (3.5-5.1) mmol/L Chloride (98-107) mmol/L Carbon Dioxide (22-30) mmol/L Anion Gap mmol/L BUN (9-20) mg/dL Creatinine (0.66-1.25) mg/dL Est GFR (CKD-EPI)AfAm (>60 ml/min/1.73 sqM) Est GFR (CKD-EPI)NonAf (>60 ml/min/1.73 sqM) Glucose (74-99) mg/dL POC Glucose (mg/dL) 122 H (70-110) mg/dL POC Glu Security Sales Consultant ID Perera Akil Calcium (8.4-10.2) mg/dL Magnesium (1.6-2.3) mg/dL Total Bilirubin (0.2-1.3) mg/dL AST (17-59) U/L ALT (4-49) U/L Alkaline Phosphatase (38-126) U/L Troponin I (0.000-0.034) ng/mL Total Protein (6.3-8.2) g/dL Albumin (3.5-5.0) g/dL 06/27/25 06/27/25 Range/Units 20:23 20:23 WBC (4.50-10.00) 10*3/uL RBC (4.40-5.60) 10*6/uL Hgb (13.0-17.0) g/dL Hct (39.6-50.0) % MCV (80.0-97.0) fL MCH (27.0-32.0) pg MCHC (32.0-37.0) g/dL Plt Count (140-440) 10*3/uL MPV (9.5-12.2) fL Immature Gran % (Auto) % Neutrophils % % Lymphocytes % % Monocytes % % Eosinophils % % Basophils % % Immature Gran # (0.00-0.04) 10*3/uL Neutrophils # (1.80-7.70) 10*3/uL Lymphocytes # (0.90-5.00) 10*3/uL Monocytes # (0.20-1.00) 10*3/uL Eosinophils # (0.04-0.35) 10*3/uL Basophils # (0.00-0.10) 10*3/uL PT (10.0-12.5) sec INR (<1.2) APTT (22.0-30.0) sec Sodium 138 (137-145) mmol/L Potassium 3.7 (3.5-5.1) mmol/L Chloride 101 (98-107) mmol/L Carbon Dioxide 26 (22-30) mmol/L Anion Gap 11 mmol/L BUN 19 (9-20) mg/dL Creatinine 0.94 (0.66-1.25) mg/dL Est GFR (CKD-EPI)AfAm >90 (>60 ml/min/1.73 sqM) Est GFR (CKD-EPI)NonAf >90 (>60 ml/min/1.73 sqM) Glucose 111 H (74-99) mg/dL POC Glucose (mg/dL) (70-110) mg/dL POC Glu Security Sales Consultant ID Calcium 9.6 (8.4-10.2) mg/dL Magnesium 1.8 (1.6-2.3) mg/dL Total Bilirubin 1.5 H (0.2-1.3) mg/dL AST 22 (17-59) U/L ALT 19 (4-49) U/L Alkaline Phosphatase 62 (38-126) U/L Troponin I <0.012 (0.000-0.034) ng/mL Total Protein 7.3 (6.3-8.2) g/dL Albumin 4.5 (3.5-5.0) g/dL Disposition Clinical Impression: Rectal bleeding Disposition: HOME SELF-CARE Condition: Good Instructions (If sedation given, give patient instructions): Gastrointestinal Bleeding (ED) Additional Instructions: Follow-up with your surgeon. Report back to ER with any new or worsening symptoms. Is patient prescribed a controlled substance at d/c from ED?: No Referrals: Angel Alba DO [Primary Care Provider] - 1-2 days Anthony Knowles MD [Medical Doctor] - 03/26/25 Time of Disposition: 21:54
[2025-03-23 19:47] LABS: Glucose,Whole Blood 122 mg/dL (70-110)
[2025-03-23 20:32] LABS: Basophils # (A) 0.08 10*3/uL (0.00-0.10); Basophils % (A) 0.9 %; Eosinophils # (A) 0.38 10*3/uL (0.04-0.35); Eosinophils % (A) 4.4 %; HCT 38.2 % (39.6-50.0); HGB 13.3 g/dL (13.0-17.0); Lymphocytes # (A) 2.08 10*3/uL (0.90-5.00); Lymphocytes % (A) 23.9 %; MCH 30.4 pg (27.0-32.0); MCHC 34.8 g/dL (32.0-37.0); MCV 87.4 fL (80.0-97.0); Mean Platelet Volume 9.9 fL (9.5-12.2); Monocytes # (A) 0.74 10*3/uL (0.20-1.00); Monocytes % (A) 8.5 %; Neutrophils # (A) 5.35 10*3/uL (1.80-7.70); Neutrophils % (A) 61.3 %; Platelet Count 221 10*3/uL (140-440); RBC 4.37 10*6/uL (4.40-5.60); RDW 14.2 % (11.5-14.5); WBC 8.72 10*3/uL (4.50-10.00)
[2025-03-23] MEDS: SODIUM CHLORIDE 0.9% 1,000 ML IV STA (20:32)
[2025-03-23 20:38] VITALS: RESP 17
[2025-03-23 20:42] LABS: ALT 19 U/L (4-49); AST 22 U/L (17-59); African American GFR (CKD) >90 (>60 ml/min/1.73 sqM); Albumin 4.5 g/dL (3.5-5.0); Alkaline Phosphatase 62 U/L (38-126); Anion Gap 11 mmol/L; Blood Urea Nitrogen 19 mg/dL (9-20); Calcium 9.6 mg/dL (8.4-10.2); Carbon Dioxide 26 mmol/L (22-30); Chloride 101 mmol/L (98-107); Glucose 111 mg/dL (74-99); Magnesium 1.8 mg/dL (1.6-2.3); Non-African American GFR(CKD) >90 (>60 ml/min/1.73 sqM); Potassium 3.7 mmol/L (3.5-5.1); Sodium 138 mmol/L (137-145); Total Bilirubin 1.5 mg/dL (0.2-1.3); Total Protein 7.3 g/dL (6.3-8.2)
[2025-03-23 20:59] LABS: Partial Thromboplastin Time 22.8 sec (22.0-30.0); Prothrombin Time 11.1 sec (10.0-12.5)
--- NOTE | 2025-03-23 21:30 | CT ---
EXAMINATION TYPE: CT angio abdomen pelvis DATE OF EXAM: 03/23/2025 7:39 PM COMPARISON: Prior CT abdomen/pelvis 01/23/2022. CLINICAL INDICATION: Male, 59 years old with history of rectal bleeding; PHH, pt reprots recent colon oscopy, pt bright/dark blood in stool, - thinners, pt reports abd cramping pt reports some sob/dizzy TECHNIQUE: Multiple thin slice sub-millimeter images were obtained after administration of contrast. 3-D reconstructed images and maximum intensity projection images were obtained. CT angio abdomen pel vis CT Contrast: Contrast used:100 ml mL of Isovue 370 with IV Contrast, Oral contrast used: without Oral Contrast None CT DLP: 6629.1 mGycm, Automated exposure control for dose reduction was used. FINDINGS: IVC filter in place. Vascular stent grafts in the iliac veins. CTA Abdomen and pelvis: The abdominal aorta does not demonstrate aneurysmal dilatation. Atherosclero tic plaquing is identified within the abdominal aorta. The origins of the superior mesenteric artery , renal arteries, inferior mesenteric artery, and celiac axis are patent. The iliac vessels are norm al in morphology CTA Lower extremities: Right: The common femoral and superficial femoral arteries are patent. The popliteal artery is patent . Anterior and posterior tibial arteries as well as the peroneal artery are patent. Anterior and post erior tibial arteries cross the ankle. Left: The common femoral and superficial femoral arteries are patent. The popliteal artery is patent. Anterior and posterior tibial arteries as well as the peroneal artery are patent. Anterior and poste rior tibial arteries cross the ankle. LOWER CHEST: No evidence of focal consolidation, pneumothorax or pleural effusion. LIVER: Unremarkable GALLBLADDER AND BILE DUCTS: Layering increased densities within the lumen consistent with gallstones are present. PANCREAS: Unremarkable. SPLEEN: Unremarkable. ADRENAL GLANDS: Unremarkable. KIDNEYS AND URETERS: No evidence of hydronephrosis or renal calculus. The ureters are unremarkable. PELVIS BLADDER: Unremarkable REPRODUCTIVE: Unremarkable. ABDOMEN & PELVIS STOMACH AND BOWEL: Evaluation of the gastrointestinal tract demonstrates no evidence of high density hemorrhage on arterial phase or pooling of blood on delayed phases.Gastric lap band in place. No evid ence of bowel obstruction. PERITONEUM: No evidence of pneumoperitoneum or free fluid. VASCULATURE: No evidence of aortic aneurysm. MUSCULOSKELETAL: No acute osseous abnormalities LYMPH NODES: No gross evidence for lymphadenopathy. SOFT TISSUE/ABDOMINAL WALL: Small fat-containing bilateral inguinal hernias, left greater than right. IMPRESSION: No acute abnormality in the abdomen/pelvis. Specifically, no evidence of active upper or lower gastro intestinal bleeding. [facility], , 03/23/2025 9:21 PM
[2025-03-23 22:21] VITALS: BP 170/94; PULSE 98
== END 2025-03-23 22:21 | disposition home or self-care (01) ==
LOC: EC 16:52
DX: K62.5 Hemorrhage of anus and rectum (principal); Z87.891 Personal history of nicotine dependence
CPT/HCPCS: 36415; 80053; 83735; 84484; 85025; 85610; 85730; 74174; 99284; 96360; Q9967